=== PATIENT | male | born 1950 | race Caucasian/White ===

== ENCOUNTER → 2017-12-17 11:45 | Outpatient (CLI) | payer MEDICARE, OTHER, SELFPAY ==
[2017-12-17 13:06] LABS: Alanine Aminotransferase 33 IU/L (21-72); Albumin 4.6 g/dL (3.5-5.0); Albumin Globulin Ratio 1.2 (1.0-2.8); Alkaline Phosphatase 90 U/L (38-126); Aspartate Aminotransferase 31 IU/L (17-59); BUN Creatinine Ratio 22.5 (6-22); Bilirubin Total 1.1 mg/dL (0.2-1.3); Blood Urea Nitrogen 27 mg/dL (9-20); Calcium 9.7 mg/dL (8.4-10.2); Carbon Dioxide 25 mmol/L (22-32); Chloride 94 mmol/L (98-107); Cholesterol 156 mg/dL (140-199); Estimated Glomerular Filt Rate > 60.0 mL/min (>60); Globulin 3.7 g/dL (1.7-4.1); Glucose 103 mg/dL (80-110); HDL Cholesterol 56 mg/dL (40-60); HEMOLYSIS 18 (0-50); LDL Cholesterol Calculated 69 mg/dL (<100); Potassium 4.7 mmol/L (3.4-5.1); Sodium 133 mmol/L (137-145); Total Protein 8.3 g/dL (6.3-8.2); Triglycerides 156 mg/dL (35-150)
[2017-12-17 15:27] LABS: Microalbumi Creatinin Ratio Ur 18.4 ug/mg CR (<30); Microalbumin Urine Random 1.4 mg/dL (0-1.6)
== END ==
PROVIDERS: PCP Internal Medicine; Visit Provider Internal Medicine
DX: I25.10 Atherosclerotic heart disease of native coronary artery without angina pectoris (principal); I10 Essential (primary) hypertension; N18.3 Chronic kidney disease, stage 3 (moderate); E11.9 Type 2 diabetes mellitus without complications
CPT/HCPCS: 36415; 80053; 80061; 82043; 82570

== ENCOUNTER → 2017-12-21 12:19 | Outpatient (CLI) | payer MEDICARE, OTHER, SELFPAY ==
[2017-12-21 13:20] LABS: Hemoglobin A1C% w Est Avg Glu 6.1 % (4.0-6.0)
[2017-12-21 13:29] LABS: Blood Urea Nitrogen 22 mg/dL (9-20); Carbon Dioxide 29 mmol/L (22-32); Chloride 90 mmol/L (98-107); Estimated Glomerular Filt Rate > 60.0 mL/min (>60); Glucose 97 mg/dL (80-110); HEMOLYSIS < 15 (0-50); Potassium 5.2 mmol/L (3.4-5.1); Sodium 131 mmol/L (137-145)
== END ==
PROVIDERS: PCP Internal Medicine; Visit Provider Internal Medicine
DX: I10 Essential (primary) hypertension (principal); E11.9 Type 2 diabetes mellitus without complications
CPT/HCPCS: 36415; 80048; 83036

== ENCOUNTER → 2018-01-17 11:26 | Outpatient (CLI) | payer MEDICARE, OTHER, SELFPAY ==
[2018-01-17 15:05] LABS: BUN Creatinine Ratio 15.7 (6-22); Blood Urea Nitrogen 22 mg/dL (9-20); Calcium 9.7 mg/dL (8.4-10.2); Carbon Dioxide 26 mmol/L (22-32); Chloride 99 mmol/L (98-107); Estimated Glomerular Filt Rate 50.4 mL/min (>60); Glucose 97 mg/dL (80-110); HEMOLYSIS < 15 (0-50); Sodium 137 mmol/L (137-145)
[2018-01-17 15:17] LABS: Potassium 5.6 mmol/L (3.4-5.1)
== END ==
PROVIDERS: PCP Internal Medicine; Visit Provider Internal Medicine
DX: I10 Essential (primary) hypertension (principal); E11.9 Type 2 diabetes mellitus without complications
CPT/HCPCS: 80048

== ENCOUNTER → 2018-01-31 11:26 | Outpatient (CLI) | payer MEDICARE, OTHER, SELFPAY ==
[2018-01-31 13:02] LABS: BUN Creatinine Ratio 16.2 (6-22); Blood Urea Nitrogen 21 mg/dL (9-20); Calcium 9.6 mg/dL (8.4-10.2); Carbon Dioxide 28 mmol/L (22-32); Chloride 100 mmol/L (98-107); Estimated Glomerular Filt Rate 54.9 mL/min (>60); Glucose 107 mg/dL (80-110); HEMOLYSIS < 15 (0-50); Potassium 5.3 mmol/L (3.4-5.1); Sodium 137 mmol/L (137-145)
== END ==
PROVIDERS: PCP Internal Medicine; Visit Provider Internal Medicine
DX: N18.3 Chronic kidney disease, stage 3 (moderate) (principal)
CPT/HCPCS: 36415; 80048

== ENCOUNTER → 2018-02-15 09:06 | Outpatient (CLI) | payer MEDICARE, OTHER, SELFPAY ==
--- NOTE | 2018-02-15 09:08 | DI.US.S_ITS ---
PROCEDURE: US RENAL COMPLETE INDICATIONS: urinary retention TECHNIQUE: Real-time scanning was performed of the kidneys and bladder, with image documentation. COMPARISON: None. FINDINGS: Kidneys: Kidneys are normal in size. Right kidney measures 10.8 cm long; left kidney measures 12.1 cm long. Right renal cortical thickness is 1.3 cm; left renal cortical thickness is 1.6 cm. Renal cortical echotexture is normal. No hydronephrosis but there is bilateral nephrolithiasis. There is a 6 mm calculus at the mid lateral right kidney and 2 calculi on the left one located at the superior collecting system area measuring 1.7 cm and the second at the middle third collecting system area medially measuring 1.6 cm No suspicious solid mass lesions. Bladder: Bladder evaluation is very limited due to the patient having voided prior to the examination. 29 cc present, the patient could not voluntarily void at this urine volume. Miscellaneous: No free pelvic fluid. IMPRESSION: Calculi present without hydronephrosis involving each kidney, one on the right and 2 on the left. The largest calculus measures up to 1.7 cm, on the left. There is very limited evaluation of the bladder due to the patient having voided prior to the study. 29 cc was present within the bladder lumen, and the patient could not voluntarily void below this level. Dictated by: Hi Moreno M.D. on 02/15/2018 at 9:54 Approved by: Hi Moreno M.D. on 02/15/2018 at 9:57
== END ==
PROVIDERS: Family Provider Family Medicine; PCP Internal Medicine; Visit Provider Internal Medicine
DX: N18.3 Chronic kidney disease, stage 3 (moderate) (principal); R33.9 Retention of urine, unspecified; N20.0 Calculus of kidney
CPT/HCPCS: 76770

== ENCOUNTER → 2018-03-09 13:46 | Outpatient (CLI) | payer MEDICARE, OTHER, SELFPAY ==
[2018-03-09 13:51] LABS: Bacteria Urine None Seen; RBC Urine None Seen (0-5/HPF); WBC Urine None Seen (0-5/HPF)
[2018-03-09 14:57] LABS: Appearance Urine UA CLEAR; Bilirubin Urine UA NEGATIVE (NEGATIVE); Color Urine UA YELLOW; Glucose Urine UA NEGATIVE (Normal); Ketones Urine UA NEGATIVE (NEGATIVE); Leukocyte Esterase Urine UA NEGATIVE (NEGATIVE); Nitrite Urine UA Negative (Negative); Occult Blood Urine UA NEGATIVE (Negative); Protein Urine UA NEGATIVE (Negative); Specific Gravity Urine UA <=1.005 (1.000-1.035); Urobilinogen Urine UA 0.2 E.U./dL (0.2)
[2018-03-09 15:02] LABS: Culture Indicated Urine Cult Not Indicated; Urine Comments Microscopic Normal
== END ==
PROVIDERS: Family Provider Family Medicine; Visit Provider Internal Medicine
DX: N18.3 Chronic kidney disease, stage 3 (moderate) (principal)
CPT/HCPCS: 81001

== ENCOUNTER → 2018-03-11 09:12 | Outpatient (CLI) | payer MEDICARE, OTHER, SELFPAY ==
[2018-03-11 10:09] LABS: BUN Creatinine Ratio 18.2 (6-22); Blood Urea Nitrogen 20 mg/dL (9-20); Calcium 9.8 mg/dL (8.4-10.2); Carbon Dioxide 28 mmol/L (22-32); Chloride 105 mmol/L (98-107); Cholesterol 146 mg/dL (140-199); Estimated Glomerular Filt Rate > 60.0 mL/min (>60); Glucose 123 mg/dL (80-110); HDL Cholesterol 52 mg/dL (40-60); HEMOLYSIS < 15 (0-50); Hemoglobin A1C% w Est Avg Glu 5.8 % (4.0-6.0); LDL Cholesterol Calculated 74 mg/dL (<100); Potassium 4.8 mmol/L (3.4-5.1); Sodium 143 mmol/L (137-145); Triglycerides 101 mg/dL (35-150)
== END ==
PROVIDERS: PCP Internal Medicine; Visit Provider Internal Medicine
DX: E11.9 Type 2 diabetes mellitus without complications (principal); E78.00 Pure hypercholesterolemia, unspecified; I10 Essential (primary) hypertension; N18.3 Chronic kidney disease, stage 3 (moderate)
CPT/HCPCS: 36415; 80048; 80061; 83036

== ENCOUNTER → 2018-06-10 07:05 | Outpatient (CLI) | payer MEDICARE, OTHER, SELFPAY ==
--- NOTE | 2018-06-10 07:07 | DI.US.S_ITS ---
PROCEDURE: US ABD AORTA ANEURYSM SCREEN INDICATIONS: HISTORY SMOKING TECHNIQUE: Real time scanning was performed of the aorta and iliac arteries, with image documentation. COMPARISON: [facility], US, US RENAL COMPLETE, 02/15/2018, 9:27. [facility], CR, ABDOMEN ACUTE SERIES, 12/09/2016, 8:45. FINDINGS: Aorta: Proximal aortic not well-visualized. Mid-aorta measures 1.5 cm. Distal aortic diameter is 1.4 cm. Iliac arteries: Right common iliac artery measures 1.2 cm. Left common iliac artery measures 1.0 cm. IMPRESSION: Proximal aorta not well visualized otherwise normal abdominal aortic or proximal common iliac artery aneurysm. Dictated by: Casey Leonard [facility] Interpreted: Thierno Bowser MD on 06/10/2018 at 8:07 Approved by: Thierno Bowser M.D. on 06/10/2018 at 11:07
== END ==
PROVIDERS: Family Provider Family Medicine; PCP Student in an Organized Health Care Education/Training Program; Visit Provider Student in an Organized Health Care Education/Training Program
DX: Z13.6 Encounter for screening for cardiovascular disorders (principal); Z87.891 Personal history of nicotine dependence
CPT/HCPCS: 76706

== ENCOUNTER → 2019-04-10 11:56 | Outpatient (CLI) | payer MEDICARE, OTHER, SELFPAY ==
[2019-04-10 14:09] LABS: BUN Creatinine Ratio 13.1 (6-22); Blood Urea Nitrogen 17 mg/dL (9-20); Calcium 9.7 mg/dL (8.4-10.2); Carbon Dioxide 25 mmol/L (22-32); Chloride 98 mmol/L (98-107); Estimated Glomerular Filt Rate 54.7 mL/min (>60); Glucose 112 mg/dL (80-110); HEMOLYSIS < 15 (0-50); Potassium 4.9 mmol/L (3.4-5.1); Sodium 136 mmol/L (137-145)
[2019-04-10 14:13] LABS: Hemoglobin A1C% w Est Avg Glu 5.9 % (4.0-6.0)
[2019-04-10 14:21] LABS: Prostate Specific Antigen Scrn 0.454 ng/mL (0.1-4.0)
[2019-04-10 15:52] LABS: Vitamin D 25 Hydroxy (D3) 32.1 ng/mL (30.0-100.0)
== END ==
PROVIDERS: PCP Student in an Organized Health Care Education/Training Program; Visit Provider Student in an Organized Health Care Education/Training Program
DX: E11.9 Type 2 diabetes mellitus without complications (principal); E87.5 Hyperkalemia; I10 Essential (primary) hypertension; Z12.5 Encounter for screening for malignant neoplasm of prostate; E55.9 Vitamin D deficiency, unspecified
CPT/HCPCS: 36415; 80048; 82306; 83036; G0103

== ENCOUNTER → 2019-08-28 11:26 | Outpatient (CLI) | payer MEDICARE, OTHER, SELFPAY ==
[2019-08-28 12:11] LABS: BUN Creatinine Ratio 16.2 (6-22); Blood Urea Nitrogen 21 mg/dL (9-20); Carbon Dioxide 25 mmol/L (22-32); Chloride 99 mmol/L (98-107); Potassium 4.9 mmol/L (3.4-5.1); Sodium 134 mmol/L (137-145)
[2019-08-28 12:12] LABS: Calcium 9.6 mg/dL (8.4-10.2); Estimated Glomerular Filt Rate 54.7 mL/min (>60); Glucose 129 mg/dL (80-110); HEMOLYSIS 22 (0-50)
[2019-08-28 12:23] LABS: Hemoglobin A1C% w Est Avg Glu 6.7 % (4.0-6.0)
== END ==
PROVIDERS: PCP Student in an Organized Health Care Education/Training Program; Referring Provider Student in an Organized Health Care Education/Training Program; Visit Provider Student in an Organized Health Care Education/Training Program
DX: E11.9 Type 2 diabetes mellitus without complications (principal); I10 Essential (primary) hypertension; N18.2 Chronic kidney disease, stage 2 (mild)
CPT/HCPCS: 36415; 80048; 83036

== ENCOUNTER → 2019-12-05 10:19 | Outpatient (CLI) | payer MEDICARE, OTHER, SELFPAY ==
[2019-12-05 11:52] LABS: Hemoglobin A1C% w Est Avg Glu 6.6 % (4.0-6.0)
[2019-12-05 12:03] LABS: BUN Creatinine Ratio 14.6 (6-22); Blood Urea Nitrogen 15 mg/dL (9-20); Estimated Glomerular Filt Rate > 60.0 mL/min (>60)
== END ==
PROVIDERS: PCP Student in an Organized Health Care Education/Training Program; Referring Provider Student in an Organized Health Care Education/Training Program; Visit Provider Student in an Organized Health Care Education/Training Program
DX: E11.9 Type 2 diabetes mellitus without complications (principal); N18.2 Chronic kidney disease, stage 2 (mild)
CPT/HCPCS: 36415; 82565; 83036; 84520

== ENCOUNTER → 2020-08-05 09:57 | Outpatient (CLI) | payer MEDICARE, OTHER, SELFPAY ==
[2020-08-06 07:44] LABS: Alanine Aminotransferase 33 IU/L (<50); Albumin 4.5 g/dL (3.5-5.0); Albumin Globulin Ratio 1.3 (1.0-2.8); Alkaline Phosphatase 90 U/L (38-126); Aspartate Aminotransferase 34 IU/L (17-59); BUN Creatinine Ratio 22.5 (6-22); Bilirubin Total 0.7 mg/dL (0.2-1.3); Blood Urea Nitrogen 25 mg/dL (9-20); Calcium 9.7 mg/dL (8.4-10.2); Carbon Dioxide 31 mmol/L (22-32); Chloride 103 mmol/L (98-107); Cholesterol 165 mg/dL (140-199); Estimated Glomerular Filt Rate > 60.0 mL/min (>60); Globulin 3.6 g/dL (1.7-4.1); Glucose 160 mg/dL (80-110); HDL Cholesterol 53 mg/dL (40-60); HEMOLYSIS < 15 (0-50); LDL Cholesterol Calculated 78 mg/dL (<100); Potassium 4.8 mmol/L (3.4-5.1); Sodium 137 mmol/L (137-145); Total Protein 8.1 g/dL (6.3-8.2); Triglycerides 168 mg/dL (35-150)
[2020-08-06 07:45] LABS: Hemoglobin A1C% w Est Avg Glu 7.1 % (4.0-6.0)
== END ==
PROVIDERS: PCP Student in an Organized Health Care Education/Training Program; Referring Provider Internal Medicine Cardiovascular Disease; Visit Provider Internal Medicine Cardiovascular Disease
DX: E78.2 Mixed hyperlipidemia (principal); E11.9 Type 2 diabetes mellitus without complications; N18.2 Chronic kidney disease, stage 2 (mild)
CPT/HCPCS: 80053; 80061; 82565; 83036; 84520

== ENCOUNTER → 2021-02-03 10:42 | Outpatient (CLI) | payer MEDICARE, OTHER, SELFPAY ==
[2021-02-03 12:05] LABS: Hemoglobin A1C% w Est Avg Glu 7.5 % (4.0-6.0)
[2021-02-03 12:15] LABS: BUN Creatinine Ratio 18.8 (6-22); Blood Urea Nitrogen 22 mg/dL (9-20); Estimated Glomerular Filt Rate > 60.0 mL/min (>60)
[2021-02-03 12:40] LABS: Prostate Specific Antigen Scrn 0.516 ng/mL (0.1-4.0)
== END ==
PROVIDERS: PCP Student in an Organized Health Care Education/Training Program; Referring Provider Student in an Organized Health Care Education/Training Program; Visit Provider Student in an Organized Health Care Education/Training Program
DX: E11.9 Type 2 diabetes mellitus without complications (principal); Z12.5 Encounter for screening for malignant neoplasm of prostate; N18.2 Chronic kidney disease, stage 2 (mild)
CPT/HCPCS: 36415; 82565; 83036; 84520; G0103

== ENCOUNTER → 2021-02-17 13:22 | Outpatient (CLI) | payer MEDICARE, OTHER, SELFPAY ==
[2021-02-17 16:07] LABS: Creatinine Urine Random 171.9 mg/dL
[2021-02-17 16:13] LABS: Microalbumi Creatinin Ratio Ur 11.6 ug/mg CR (<30)
== END ==
PROVIDERS: PCP Student in an Organized Health Care Education/Training Program; Referring Provider Student in an Organized Health Care Education/Training Program; Visit Provider Student in an Organized Health Care Education/Training Program
DX: E11.9 Type 2 diabetes mellitus without complications (principal); N18.2 Chronic kidney disease, stage 2 (mild)
CPT/HCPCS: 82043; 82570

== ENCOUNTER → 2021-08-12 12:03 | Outpatient (CLI) | payer MEDICARE, OTHER, SELFPAY ==
[2021-08-12 14:37] LABS: BUN Creatinine Ratio 18.2 (6-22); Blood Urea Nitrogen 18 mg/dL (9-20); Cholesterol 92 mg/dL (140-199); Estimated Glomerular Filt Rate > 60.0 mL/min (>60); HDL Cholesterol 63 mg/dL (40-60); LDL Cholesterol Calculated 18 mg/dL (<100); Triglycerides 56 mg/dL (35-150)
== END ==
PROVIDERS: PCP Student in an Organized Health Care Education/Training Program; Referring Provider Internal Medicine Cardiovascular Disease; Visit Provider Internal Medicine Cardiovascular Disease
DX: E11.9 Type 2 diabetes mellitus without complications (principal); E78.2 Mixed hyperlipidemia; N18.2 Chronic kidney disease, stage 2 (mild)
CPT/HCPCS: 36415; 80061; 82565; 83036; 84520

== ENCOUNTER → 2021-09-02 12:50 | Outpatient (CLI) | payer MEDICARE, OTHER, SELFPAY ==
[2021-09-03 16:24] LABS: Bilirubin Urine UA NEGATIVE (NEGATIVE); Color Urine UA YELLOW; Glucose Urine UA NEGATIVE (Negative); Ketones Urine UA NEGATIVE (NEGATIVE); Leukocyte Esterase Urine UA TRACE (NEGATIVE); Nitrite Urine UA NEGATIVE (Negative); Occult Blood Urine UA 3+ (Negative); Protein Urine UA 1+ (Negative); Specific Gravity Urine UA <=1.005 (1.000-1.035); Urobilinogen Urine UA 0.2 E.U./dL (0.2)
[2021-09-03 17:14] LABS: Appearance Urine UA Slightly Cloudy; RBC Urine 5-10/HPF (0-5/HPF); Squamous Epithelial Cell Urine 1-5 /HPF (0-5/HPF); WBC Urine 5-10/HPF (0-5/HPF)
[2021-09-03 17:15] LABS: Amorphous Sediment Urine 1+; Bacteria Urine Occasional (0-1); Culture Indicated Urine Specimen Cultured
== END ==
PROVIDERS: PCP Student in an Organized Health Care Education/Training Program; Referring Provider Student in an Organized Health Care Education/Training Program; Visit Provider Student in an Organized Health Care Education/Training Program
DX: Z20.822 Contact with and (suspected) exposure to COVID-19 (principal)
CPT/HCPCS: 36415; 80048; 81001; 82043; 82570; 83036; 87086

== ENCOUNTER → 2021-09-15 11:45 | Outpatient (CLI) | payer MEDICARE, OTHER, SELFPAY ==
[2021-09-15 15:21] LABS: Creatinine Urine Random 74.5 mg/dL
[2021-09-15 15:28] LABS: Microalbumi Creatinin Ratio Ur 185.2 ug/mg CR (<30); Microalbumin Urine Random 13.8 mg/dL (0-1.6)
[2021-09-16 10:54] LABS: Appearance Urine UA SL CLOUDY; Bilirubin Urine UA NEGATIVE (NEGATIVE); Color Urine UA YELLOW; Glucose Urine UA NEGATIVE (Negative); Ketones Urine UA NEGATIVE (NEGATIVE); Leukocyte Esterase Urine UA NEGATIVE (NEGATIVE); Nitrite Urine UA NEGATIVE (Negative); Occult Blood Urine UA 3+ (Negative); Protein Urine UA 1+ (Negative); Specific Gravity Urine UA 1.015 (1.000-1.035); Urobilinogen Urine UA 0.2 E.U./dL (0.2); pH Urine UA 5.5 (4.5-8.0)
[2021-09-16 11:04] LABS: Bacteria Urine None Seen; Calcium Oxalate Crystals Urine Moderate; RBC Urine 30-100/HPF (0-5/HPF); Squamous Epithelial Cell Urine 0-1 /HPF (0-5/HPF); WBC Urine 1-5/HPF (0-5/HPF)
[2021-09-16 11:05] LABS: Culture Indicated Urine Cult Not Indicated
== END ==
PROVIDERS: PCP Student in an Organized Health Care Education/Training Program; Referring Provider Student in an Organized Health Care Education/Training Program; Visit Provider Student in an Organized Health Care Education/Training Program
DX: N18.2 Chronic kidney disease, stage 2 (mild) (principal); E11.9 Type 2 diabetes mellitus without complications; E78.00 Pure hypercholesterolemia, unspecified; E87.5 Hyperkalemia; I10 Essential (primary) hypertension; R33.9 Retention of urine, unspecified; I25.10 Atherosclerotic heart disease of native coronary artery without angina pectoris; R31.9 Hematuria, unspecified
CPT/HCPCS: 81003; 81015; 82043; 82570

== ENCOUNTER → 2021-09-22 12:08 | Outpatient (CLI) | payer MEDICARE, OTHER, SELFPAY ==
[2021-09-22 13:34] LABS: Blood Urea Nitrogen 16 mg/dL (9-20); Calcium 9.5 mg/dL (8.4-10.2); Carbon Dioxide 24 mmol/L (22-32); Chloride 100 mmol/L (98-107); Estimated Glomerular Filt Rate > 60.0 mL/min (>60); Glucose 210 mg/dL (80-110); HEMOLYSIS < 15 (0-50); Potassium 4.2 mmol/L (3.4-5.1); Sodium 134 mmol/L (137-145)
--- NOTE | 2021-09-22 13:40 | DI.CT.S_ITS ---
PROCEDURE: CT ABDOMEN PELVIS WO/W CON INDICATIONS: Hematuria TECHNIQUE: Optional 5 mm thick noncontrast images acquired from the diaphragm to the symphysis pubis. After the administration of intravenous contrast, 5 mm thick images acquired from the diaphragm to the symphysis pubis after a 10-minute delay. 2 mm thick coronal and sagittal reformats were then performed of the kidneys and ureters. For radiation dose reduction, the following was used: automated exposure control, adjustment of mA and/or kV according to patient size. COMPARISON: None. FINDINGS: Image quality: Excellent. Lung bases: Lung bases are clear. Heart size is normal. Post median sternotomy. Coronary artery calcifications. Urinary system: Both kidneys are normal in size. Left renal pelvis is distended with a large stone measuring 2.8 cm, (). There is stranding surrounding the left renal pelvis. 2nd left kidney stone measuring 1.1 cm. Small bilateral renal cysts. No perinephric fat stranding. There is normal bilateral renal enhancement. Renal calyces appear normal in morphology when filled with contrast. Opacified portions of both ureters demonstrate normal caliber. Bladder wall thickness is normal. No calcified bladder stones. Other solid organs: Liver is normal in size and enhancement. Gallbladder is decompressed. Gallstone measuring 0.6 cm. Biliary system is non dilated. Pancreas is atrophic. Spleen is normal in size and enhancement. No adrenal nodules. Peritoneum and bowel: Bowel loops demonstrate normal wall thickness and caliber. Diverticulosis. Normal appendix. No free fluid or air. Nodes and vessels: No retroperitoneal or mesenteric adenopathy by size criteria. Aorta and inferior vena cava are normal in size. Circumferential calcified atherosclerotic plaque. Abdominal wall: No ventral hernias. Pelvis: Prostatomegaly. No pathologic free pelvic fluid. Fat containing right inguinal hernia. No adenopathy. Left testicle measures 3.1 cm in length. The right testicle measures 5.2 cm in length, (6/48). Bones: No suspicious bony lesions. No vertebral body compression fractures. IMPRESSION: 1. Large stone in the left renal pelvis measuring 2.8 cm. There is stranding surrounding the left renal pelvis which may be due to inflammatory change. There is no significant caliectasis. 2. Additional nonobstructing left kidney stone. 3. Asymmetric enlargement of the right testicle compared to the left. -Recommend further evaluation with scrotal ultrasound. 4. Small gallstone. Diverticulosis. Dictated by: Sharad De La O M.D. on 09/22/2021 at 15:31 Approved by: Sharad De La O M.D. on 09/22/2021 at 15:56
[2021-09-22 13:41] LABS: Hemoglobin A1C% w Est Avg Glu 6.8 % (4.0-6.0)
== END ==
PROVIDERS: PCP Student in an Organized Health Care Education/Training Program; Referring Provider Student in an Organized Health Care Education/Training Program; Visit Provider Student in an Organized Health Care Education/Training Program
DX: N20.0 Calculus of kidney (principal); R31.9 Hematuria, unspecified; R33.9 Retention of urine, unspecified; E11.22 Type 2 diabetes mellitus with diabetic chronic kidney disease; I12.9 Hypertensive chronic kidney disease with stage 1 through stage 4 chronic kidney disease, or unspecified chronic kidney disease; N18.2 Chronic kidney disease, stage 2 (mild); N44.8 Other noninflammatory disorders of the testis; K80.20 Calculus of gallbladder without cholecystitis without obstruction; K57.90 Diverticulosis of intestine, part unspecified, without perforation or abscess without bleeding; E78.00 Pure hypercholesterolemia, unspecified; E87.5 Hyperkalemia; I25.10 Atherosclerotic heart disease of native coronary artery without angina pectoris
CPT/HCPCS: 36415; 74178; 80048; 83036

== ENCOUNTER → 2021-09-24 09:49 | Outpatient (CLI) | payer MEDICARE, OTHER, SELFPAY ==
--- NOTE | 2021-09-24 09:50 | DI.RAD.S_ITS ---
PROCEDURE: XR KUB INDICATIONS: ureteric and renal calculus TECHNIQUE: One view of the abdomen acquired. COMPARISON: [facility], CR, ABDOMEN ACUTE SERIES, 12/09/2016, 8:45. [facility], CT, CT ABDOMEN PELVIS WO/W CON, 09/22/2021, 13:42. FINDINGS: Surgical changes and devices: None. Bowel: Bowel gas pattern is normal. Soft tissues: Large stones are to the area of the left kidney 0.1 cm and 3.1 cm, respectively. Kidney stones are unchanged in position. No definitive right renal calculi of the right kidney is obscured by overlying stool. There is a moderate amount of stool in proximal colon. Visualized solid organ contours appear normal in size. Bones: No suspicious bony lesions. IMPRESSION: 2 large left renal calculi are identified, unchanged in position compared to the recent CT. Dictated by: Juan M Carranza M.D. on 09/24/2021 at 11:57 Approved by: Juan M Carranza M.D. on 09/24/2021 at 12:00
== END ==
PROVIDERS: PCP Student in an Organized Health Care Education/Training Program; Referring Provider Specialist; Visit Provider Specialist
DX: N20.2 Calculus of kidney with calculus of ureter (principal); R31.0 Gross hematuria; N50.0 Atrophy of testis
CPT/HCPCS: 74018; 81002; 99215

== ENCOUNTER → 2021-09-30 09:34 | Outpatient (CLI) | payer MEDICARE, OTHER, SELFPAY ==
[2021-09-30 10:48] LABS: COVID19 -Nasal RAPID Negative (Negative)
== END ==
PROVIDERS: PCP Student in an Organized Health Care Education/Training Program; Visit Provider Specialist
DX: Z20.822 Contact with and (suspected) exposure to COVID-19 (principal)
CPT/HCPCS: 87635; C9803

== ENCOUNTER 2021-10-03 08:19 | Day surgery (SDC) | payer MEDICARE, OTHER, SELFPAY ==
--- NOTE | 2021-10-03 | DI.RAD.S_ITS ---
PROCEDURE: XR KUB INDICATIONS: Left renal calculi TECHNIQUE: One view of the abdomen acquired. COMPARISON: [facility], CT, CT ABDOMEN PELVIS WO/W CON, 09/22/2021, 13:42. [facility], CR, XR KUB, 09/24/2021, 10:02. FINDINGS: Surgical changes and devices: None. Bowel: Nonspecific bowel gas pattern. Moderate stool burden in the ascending colon. Soft tissues: Redemonstrated left renal calculi, measuring up to 2.9 cm. Visualized solid organ contours appear normal in size. Bones: No suspicious bony lesions. IMPRESSION: Redemonstrated left nephrolithiasis. Dictated by: Michael Disla M.D. on 10/03/2021 at 9:57 Approved by: Michael Disla M.D. on 10/03/2021 at 9:58
--- NOTE | 2021-10-03 | DI.RAD.S_ITS ---
PROCEDURE: XR ABDOMEN 1V INDICATIONS: LT STENT PLACEMENT TECHNIQUE: 2 spot fluoroscopic intra procedural images were acquired. COMPARISON: [facility], CR, XR KUB, 09/24/2021, 10:02. [facility], CR, XR KUB, 10/03/2021, 8:34. FINDINGS: Spot fluoroscopic intraprocedural images of the left paraspinal region demonstrate a left ureteral stent with proximal tip coiling in the expected location of the renal pelvis. Left renal calculi are seen as demonstrated on radiographs from earlier the same day. IMPRESSION: Fluoroscopic guidance was used for left ureteral stent placement with upper tip looping over the expected location of the left renal pelvis. Dictated by: Mynor Archuleta M.D. on 10/03/2021 at 14:52 Approved by: Mynor Archuleta M.D. on 10/03/2021 at 14:54
[2021-10-03 08:40] VITALS: BP 123/64; PULSE 75; RESP 18; TEMP 36.6; O2SAT 100
[2021-10-03 08:55] VITALS: BMI 26.9
[2021-10-03] MEDS: LACTATED RINGERS 1,000 ML 42 ML IV (09:05)
--- NOTE | 2021-10-03 10:01 | PM.PREOP ---
Pre-operative Note COVID-19 Criteria for continued procedure: Expected advancement of disease process, Possibility delay results in more complex future surgery or treatment, Continuing or worsening of significant or severe pain, Deterioration of the patient's condition or overall health, Delay expected to result in less-positive ultimate med/surg outcome and Non-surgical alternatives not available or appropriate per current SOC Interval Note History & Physical reviewed/Exam performed by Physician: Yes Changes to H&P: No
--- NOTE | 2021-10-03 10:06 | SUR.OPER ---
Lithotomy on padded OR bed, head on pillow, arms secured on padded arm boards at <90 degrees abduction. Legs secured in padded yellow fins stirrups.
[2021-10-03] MEDS: CEFAZOLIN 2 GM/20 ML SYRINGE IV (10:25)
[2021-10-03 10:50] VITALS: BP 122/54; PULSE 61; RESP 16; TEMP 36.4; O2SAT 98
[2021-10-03 10:55] VITALS: BP 116/50; PULSE 59; RESP 16; O2SAT 96
[2021-10-03 11:00] VITALS: BP 122/52; PULSE 63; RESP 16; O2SAT 96
[2021-10-03 11:05] VITALS: BP 123/51; PULSE 60; RESP 18; O2SAT 96
[2021-10-03 11:14] VITALS: BP 128/49; PULSE 67; RESP 15; TEMP 36.4; O2SAT 98
--- NOTE | 2021-10-03 11:40 | P.OP_ITS ---
Operative Date/Time/Diagnoses Date of procedure: 10/03/21 Time of procedure: 11:20 Pre-op diagnosis: 1. Obstructing 2.1 x 2.9 cm left renal pelvic calculus. 2. Intermittent gross hematuria. Post-op diagnosis: same Procedure & Clinicians Procedure: 1. Cystoscopy/placement left ureteral stent (8 [place] by 22-32 cm multi-length). Same procedure as scheduled: Yes Indications: 1. 2.1 x 2.9 cm left renal pelvic calculus. 2. Intermittent gross hematuria. Click Yes if Unassisted: Yes Anesthesia Type: General Operative Notes Findings: 1. Urethra-normal caliber without annular stricture or lesion. 2. External sphincter-coapted with normal overlying urothelium. 3. Tpjyxmkk-8-6.5 cm length with moderately obstructing trilobar hyperplasia. 4. Bladder-1+ trabeculation. Normal ureteral orifices bilaterally. No stone, tumor, foreign body seen. Closure Type: primary Specimen(s): none sent Applied: other (Eight [place] by 22-32 cm multi-length stent) Estimated Blood Loss (mL): 0 Blood products transfused: none Procedure in detail: The patient was positioned in supine was administered general anesthesia. He was then repositioned semi lithotomy lower abdomen, genitalia and groin were then prepped and draped sterile fashion. A 22 [place] panendoscope some past lower urinary tract with the findings as described above. A 0.35 hybrid guidewire was then advanced through the endoscope and then passed in left collecting system under direct and fluoroscopic guidance. Next, an 8 [place] by 22-32 cm multi-length stent was selected. This was then advanced over the hybrid guidewire under direct and fluoroscopic guidance. NO RETRIEVAL LINE WAS LEFT ATTACHED. Bladder was then drained completely and the panendoscope was removed. The patient was then repositioned in supine, awakened, and transferred to a [facility] for transport to PACU. Complications: none Post-operative Condition: stable Disposition: PACU Plan for aftercare: Discharge home.
== END 2021-10-03 11:39 | disposition home or self-care (01) ==
PROVIDERS: PCP Student in an Organized Health Care Education/Training Program; Referring Provider Specialist; Visit Provider Specialist
PROC: (CPT 52332; principal; 2021-10-03 09:15)
DX: N20.1 Calculus of ureter (principal); R31.0 Gross hematuria; N40.0 Benign prostatic hyperplasia without lower urinary tract symptoms
CPT/HCPCS: 52332; 74018; 76000; 82962; J0690; J1885; J2250; J2405; J2704; J3010

== ENCOUNTER → 2021-12-23 15:26 | Outpatient (CLI) | payer MEDICARE, OTHER, SELFPAY ==
--- NOTE | 2021-12-23 15:29 | DI.RAD.S_ITS ---
PROCEDURE: XR KUB INDICATIONS: left nephrolithiasis TECHNIQUE: One view of the abdomen acquired. COMPARISON: [facility], CT, CT ABDOMEN PELVIS WO/W CON, 09/22/2021, 13:42. [facility], CR, XR ABDOMEN 1V, 10/03/2021, 10:53. [facility], CR, XR KUB, 10/03/2021, 8:34. FINDINGS: Surgical changes and devices: Left ureteral stent again noted. Bowel: Bowel gas pattern is normal. Soft tissues: No suspicious abdominal calcifications. Visualized solid organ contours appear normal in size. 3.2 cm calcification again seen projected over the left renal pelvis and 1.3 cm calcification projected over the superior pole of the left kidney. Bones: No suspicious bony lesions. IMPRESSION: 1. Interval placement of left ureteral stent. 2. 3.2 cm calcification projected over the left renal pelvis and 1.3 cm calcification again seen projected over the superior pole of the left kidney. Dictated by: Casey Leonard [facility] Interpreted: Juan M Carranza MD on 12/23/2021 at 15:42 Approved by: Juan M Carranza M.D. on 12/23/2021 at 17:25
== END ==
PROVIDERS: PCP Student in an Organized Health Care Education/Training Program; Referring Provider Specialist; Visit Provider Specialist
DX: N20.0 Calculus of kidney (principal)
CPT/HCPCS: 74018

== ENCOUNTER → 2021-12-24 13:49 | Outpatient (CLI) | payer MEDICARE, OTHER, SELFPAY ==
[2021-12-24 14:38] LABS: COVID19 -Nasal RAPID Negative (Negative)
== END ==
PROVIDERS: PCP Student in an Organized Health Care Education/Training Program; Visit Provider Specialist
DX: N20.0 Calculus of kidney (principal); Z20.822 Contact with and (suspected) exposure to COVID-19; Z96.0 Presence of urogenital implants
CPT/HCPCS: 87635; 99215

== ENCOUNTER 2021-12-26 09:20 | Day surgery (SDC) | payer MEDICARE, OTHER, SELFPAY ==
--- NOTE | 2021-12-26 | DI.RAD.S_ITS ---
PROCEDURE: XR ABDOMEN 1V INDICATIONS: LT STENT TECHNIQUE: One view of the abdomen acquired. COMPARISON: None. FINDINGS: Intraoperative images demonstrate proximal segment of left ureteral stent. IMPRESSION: Left ureteral stent. Dictated by: Celeste Rider MD, PhD on 12/26/2021 at 15:01 Approved by: Celeste Rider MD, PhD on 12/26/2021 at 15:02
--- NOTE | 2021-12-26 10:20 | PM.PREOP ---
Pre-operative Note COVID-19 Criteria for continued procedure: Expected advancement of disease process, Possibility delay results in more complex future surgery or treatment, Deterioration of the patient's condition or overall health, Delay expected to result in less-positive ultimate med/surg outcome and Non-surgical alternatives not available or appropriate per current SOC Interval Note History & Physical reviewed/Exam performed by Physician: Yes Changes to H&P: No
[2021-12-26 10:29] VITALS: BP 163/74; PULSE 69; RESP 16; TEMP 36.3; O2SAT 99
[2021-12-26] MEDS: LACTATED RINGERS 1,000 ML 100 ML IV (10:43)
[2021-12-26] MEDS: CEFAZOLIN 2 GM/20 ML SYRINGE IV (11:05)
--- NOTE | 2021-12-26 11:25 | SUR.OPER ---
Lithotomy on padded OR bed, head on pillow, arms secured on padded arm boards at <90 degrees abduction. Legs secured in padded yellow fins stirrups.
--- NOTE | 2021-12-26 11:39 | P.OP_ITS ---
Operative Date/Time/Diagnoses Date of procedure: 12/26/21 Time of procedure: 11:39 Pre-op diagnosis: 1. Large left renal stone burden x2. 2. Gross hematuria. 3. CKD 4. Retained left ureteral stent. Post-op diagnosis: same Procedure & Clinicians Procedure: 1. Cystoscopy/left ureteral stent exchange (8 [place] by 22-32 cm multi-length. Same procedure as scheduled: Yes Indications: 1. Large left renal stone burden x2. 2. Gross hematuria. 3. CKD. 4. Retained left ureteral stent. Surgeon: Ros Dunn Click Yes if Unassisted: Yes Anesthesia Type: General Operative Notes Findings: 1. Urethra-normal caliber without annular stricture or lesion. 2. External sphincter coapted with normal overlying urothelium. 3. Prostate-3.5-4 cm length with moderate trilobar hyperplasia. 4. Bladder-1+ trabeculation. Normal right ureteral orifice. Left ureteral orifice has intact left stent with moderate encrustations of the stent. There was moderate erythema and bullous edema the vicinity of left ureteral orifice and distal intramural ureter. Closure Type: not applicable Specimen(s): other (Stone material dislodged from indwelling left ureteral stent.) Applied: other (Eight [place] by 22-32 cm multilink stent.) Estimated Blood Loss (mL): 0 Procedure in detail: Patient was positioned supine was administered general anesthesia. He was then repositioned in semi lithotomy and the lower abdomen, genitalia, and groin were then prepped and draped in sterile fashion. Twenty-two [place] panendoscope was then passed the lower urinary tract with the findings as described above. The foreign body grasper was then used to engage the distal end of the stent and the stent was then withdrawn with its distal tip just beyond the penile meatus. A 0.35 hybrid guidewire was then advanced into the lumen of retained stent and advanced proximally. However due to encrustations, the wire was not able to be advanced successfully through and through to establish continuity of the proximal tip in the intrarenal pelvis. Therefore the hybrid guidewire was backloaded off the ureteral stent. The panendoscope was then reintroduced alongside the retained ureteral stent now the hybrid guidewire was advanced successfully into the left ureteral orifice and advanced proximally under direct fluoroscopic vision. The indwelling, retained, left ureteral stent was then removed and discarded. Next, an 8 [place] by 22-32 cm multi-length stent was a dvanced over the hybrid guidewire advanced proximally under direct and fluoroscopic guidance. NO RETRIEVAL LINE WAS LEFT ATTACHED. The bladder was then drained completely and all instrumentation was removed. The patient was then awakened, transferred to [facility], and then transferred to PACU in stable condition. Complications: none Post-operative Condition: stable Disposition: PACU Plan for aftercare: Discharge home.
[2021-12-26 11:41] VITALS: BP 142/63; PULSE 61; RESP 15; TEMP 36.3; O2SAT 97
[2021-12-26 11:46] VITALS: BP 135/61; PULSE 61; RESP 15; O2SAT 97
[2021-12-26 11:51] VITALS: BP 142/61; PULSE 62; RESP 15; O2SAT 97
[2021-12-26 12:08] VITALS: BP 143/57; PULSE 62; RESP 15; O2SAT 97
--- NOTE | 2021-12-26 12:13 | SUR.PHASEII ---
discharge instructions reviewed pt and he verbalized understanding.
--- NOTE | 2021-12-26 12:24 | SUR.PHASEII ---
pt had bleeding from the meatus post op. drainage soaked through gauze pads. [facility] notified and he stated that this was expected due to the procedure. Pt instructed to watch bleeding and if it doesnt subside or increases to get to the ER for help. Pt verbalized understanding.
[2022-01-02 08:52] LABS: Ca oxalate dihydrate 20 % (.); Ca oxalate monohydr 80 % (.); Size 6x4 mm (.)
== END 2021-12-26 12:26 | disposition home or self-care (01) ==
PROVIDERS: PCP Student in an Organized Health Care Education/Training Program; Referring Provider Specialist; Visit Provider Specialist
PROC: (CPT 52332; principal; 2021-12-26 10:45)
DX: N20.0 Calculus of kidney (principal); Z96.0 Presence of urogenital implants; N18.9 Chronic kidney disease, unspecified; I25.10 Atherosclerotic heart disease of native coronary artery without angina pectoris; Z95.1 Presence of aortocoronary bypass graft; I10 Essential (primary) hypertension; G47.33 Obstructive sleep apnea (adult) (pediatric); E11.9 Type 2 diabetes mellitus without complications; Z79.84 Long term (current) use of oral hypoglycemic drugs
CPT/HCPCS: 52332; 74018; 76000; 82365; 82962; J0690; J2405; J2704; J3010

== ENCOUNTER → 2022-01-14 15:02 | Outpatient (CLI) | payer MEDICARE, OTHER, SELFPAY ==
--- NOTE | 2022-01-14 15:04 | DI.US.S_ITS ---
PROCEDURE: US SCROTUM INDICATIONS: enlarged right testicle TECHNIQUE: Real-time scanning was performed of the scrotum and testicles, with image documentation. Color and pulse Doppler interrogation was performed of both testicles. COMPARISON: None. FINDINGS: Right: Testicle is normal in size at 5.0 x 2.6 x 3.5 cm. There is a 2 mm echogenic focus within the superior lateral aspect of the testicle. Epididymis is normal in overall size and morphology. Small hydrocele. No varicocele. Overlying scrotal skin is normal in thickness. Left: Testicle is normal in size at 2.9 x 1.8 x 2.2 cm. Slightly heterogeneous parenchyma. Epididymis is normal in overall size and morphology. Small hydrocele. No varicocele. Overlying scrotal skin is normal in thickness. Doppler: Color and pulse Doppler demonstrate normal and symmetric arterial flow in both testicles. IMPRESSION: 1. Heterogeneous left testicular parenchyma without focal mass. 2. Echogenic focus within the right testis, possibly related to prior infection or injury. 3. No acute process. Dictated by: Anamaria Gunderson M.D. on 01/14/2022 at 16:29 Transcribed by: CARMELO on 01/14/2022 at 16:34 Approved by: Anamaria Gunderson M.D. on 01/14/2022 at 17:03
== END ==
PROVIDERS: PCP Family Medicine; Referring Provider Specialist; Visit Provider Specialist
DX: N44.8 Other noninflammatory disorders of the testis (principal)
CPT/HCPCS: 76870

== ENCOUNTER → 2022-01-31 12:08 | Outpatient (CLI) | payer MEDICARE, OTHER, SELFPAY ==
[2022-01-31 13:06] LABS: Add Manual Diff / Slide Review NO; Basophils Absolute Auto 100 /uL (0-100); Basophils Percent Auto 1.1 % (0-2); Eosinophils Absolute Auto 400 /uL (0-450); Eosinophils Percent Auto 5.1 % (2-4); Hematocrit 35.4 % (41-53); Hemoglobin 12.5 g/dL (13.5-17.5); Lymphocytes Absolute Auto 2700 /uL (1100-4500); Mean Corpuscular HGB Conc 35.5 % (30-36); Mean Corpuscular Hemoglobin 32.1 PG (26-34); Mean Corpuscular Volume 90.6 fL (80-100); Monocytes Absolute Auto 700 /uL (0-900); Monocytes Percent Auto 8.7 % (3-14); Neutrophils Absolute Auto 4400 /uL (1500-7000); Neutrophils Percent Auto 53.1 % (50-75); Platelet Count 198 X10^3/uL (150-400); Red Blood Cell Count 3.91 X10^6/uL (4.5-5.9); Red Cell Distribution Width 13.2 % (11.6-14.8); White Blood Cell Count 8.3 X10^3/uL (4.5-11.0)
[2022-01-31 13:20] LABS: BUN Creatinine Ratio 18.8 (6-22); Blood Urea Nitrogen 24 mg/dL (9-20); Calcium 9.5 mg/dL (8.4-10.2); Carbon Dioxide 25 mmol/L (22-32); Chloride 103 mmol/L (98-107); Estimated Glomerular Filt Rate 59 mL/min (>60); Glucose 111 mg/dL (80-110); HEMOLYSIS < 15 (0-50); Potassium 4.9 mmol/L (3.4-5.1); Sodium 135 mmol/L (137-145)
== END ==
PROVIDERS: Nurse Practitioner Family; PCP Family Medicine; Referring Provider Family Medicine; Visit Provider Family Medicine
DX: I10 Essential (primary) hypertension (principal); N28.9 Disorder of kidney and ureter, unspecified
CPT/HCPCS: 36415; 80048; 85025

== ENCOUNTER → 2022-02-11 11:41 | Outpatient (CLI) | payer MEDICARE, OTHER, SELFPAY ==
--- NOTE | 2022-02-11 11:51 | DI.RAD.S_ITS ---
PROCEDURE: XR KUB INDICATIONS: calculus of kidney TECHNIQUE: One view of the abdomen acquired. COMPARISON: [facility], CR, XR KUB, 12/23/2021, 15:17. FINDINGS: Surgical changes and devices: Left-sided ureteral stent is again seen.. Bowel: Bowel gas pattern is nonobstructive. Moderate fecal stasis throughout the colon is seen. No gross pneumoperitoneum. Soft tissues: 2 left-sided renal calcifications are again seen measures 1 cm M and 2.5 x 2.9 cm in size unchanged from prior study.. Visualized solid organ contours appear normal in size. Bones: No suspicious bony lesions. IMPRESSION: Stable appearing left-sided renal calculi. Left-sided ureteral stent in place. [id number] constipation. Dictated by: Thierno Bowser M.D. on 02/11/2022 at 15:15 Approved by: Thierno Bowser M.D. on 02/11/2022 at 15:18
[2022-02-11 13:17] LABS: Appearance Urine UA CLEAR; Bilirubin Urine UA NEGATIVE (NEGATIVE); Color Urine UA YELLOW; Glucose Urine UA NEGATIVE (Negative); Ketones Urine UA NEGATIVE (NEGATIVE); Leukocyte Esterase Urine UA 1+ (NEGATIVE); Nitrite Urine UA NEGATIVE (Negative); Occult Blood Urine UA 3+ (Negative); Protein Urine UA 2+ (Negative); Urobilinogen Urine UA 0.2 E.U./dL (0.2); pH Urine UA 5.5 (4.5-8.0)
[2022-02-11 13:29] LABS: Calcium 8.9 mg/dL (8.4-10.2); Uric Acid 3.1 mg/dL (3.5-8.5)
[2022-02-11 13:35] LABS: Amorphous Sediment Urine 2+; Bacteria Urine Occasional (0-1); RBC Urine 5-10/HPF (0-5/HPF); Renal Epithelial Cells Urine 1-5/HPF (0-1/HPF); WBC Urine 5-10/HPF (0-5/HPF)
[2022-02-12 06:00] LABS: Parathyroid Hormone Int 43 pg/mL (15-65)
== END ==
PROVIDERS: PCP Family Medicine; Referring Provider Specialist; Visit Provider Specialist
DX: N20.0 Calculus of kidney (principal); K59.00 Constipation, unspecified; Z96.0 Presence of urogenital implants
CPT/HCPCS: 36415; 74018; 81001; 82310; 83970; 84550; 87086

== ENCOUNTER 2022-03-13 20:33 | Emergency (ER) | payer MEDICARE, OTHER, SELFPAY ==
[2022-03-13] VITALS (9 sets, daily range): BP systolic 201–245; BP diastolic 89–124; PULSE 62–72; RESP 17–21; TEMP 36.6–36.8; O2SAT 99; BMI 25.8
--- NOTE | 2022-03-13 21:18 | ED_ITS ---
HPI - General Adult General Chief complaint: Hypertension Stated complaint: High BP 213/105 Time Seen by Provider: 03/13/22 21:18 Source: patient Mode of arrival: Ambulatory History of Present Illness HPI narrative: 71-year-old gentleman with a history of coronary artery disease, hypertension, diabetes, hyperlipidemia who presents with asymptomatic hypertension. 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 The amlodipine and lisinopril were discontinued metoprolol was changed to 50 mg daily and valsartan 160 mg was added at night. He was checking blood pressures this evening prior to taking his valsartan and found numbers in the 220/110 range. No particular stressors, no fevers, cough, chills, chest pain, palpitations. He is having no headaches and no acute neurologic findings. Related Data Home Medications Medication Instructions Recorded Confirmed aspirin 81 mg tablet,delayed 81 mg PO DAILY 04/11/19 03/13/22 release lisinopril 20 mg tablet 20 mg PO QAM 08/06/20 12/25/21 atorvastatin 40 mg tablet 40 mg PO QPM 03/13/22 03/13/22 nitroglycerin 0.4 mg sublingual 0.4 mg sublingual PRN PRN Chest 03/13/22 03/13/22 tablet (Nitrostat) Pain valsartan 160 mg capsule 160 mg PO QPM 03/13/22 03/13/22 Previous Rx's Medication Instructions Recorded metoprolol succinate 50 mg 50 mg PO QDAY #90 tabs 04/01/21 tablet,extended release 24 hr metformin 500 mg tablet 500 mg PO BID #180 tabs 08/13/21 Allergies Allergy/AdvReac Type Severity Reaction Status Date / Time No Known Drug Allergies Allergy Verified 03/13/22 20:56 Review of Systems Review of Systems Narrative: Remainder of complete review of systems is otherwise unremarkable except for that included in the HPI. Patient History Medical History CAD (coronary artery disease) (2008) Chicken pox (~1955) Colon polyps (2011) Diabetes mellitus (2016) Foot pain (2013) Gout (2011) Hearing loss (1999) History of angina (2008) Hyperlipidemia (2009) Hypertension (10/1993) Left nephrolithiasis Measles (~1955) Mumps (1964) Retained ureteral stent Sleep apnea (2010) Subarachnoid hemorrhage (1992) Testicular atrophy Surgical History Anesthesia History of tonsillectomy Hx of cystoscopy (10/03/21) Status post coronary artery bypass graft (10/2009) Family History Father Stroke Diabetes mellitus Grandmother Cancer Sister Heart disease Grandfather No problems noted. Social History marital status: household members: spouse Smoking Status: Former smoker alcohol intake: current Smoking Status: Former smoker alcohol intake frequency: other Substance Use Type: does not use Exam Initial Vital Signs Initial Vital Signs: Vital Signs Temperature 97.9 F 03/13/22 20:56 Pulse Rate 70 03/13/22 20:56 Respiratory Rate 20 03/13/22 20:56 Blood Pressure 221/124 H 03/13/22 20:56 Pulse Oximetry 99 03/13/22 20:56 Oxygen Delivery Method 03/13/22 20:56 General: Healthy appearing, in no acute distress. Able to give a complete and coherent history. Well-nourished well-developed HEENT: Moist mucous membranes, normal sclera with reactive pupils, Neck: No JVD, supple Respiratory: Lungs are clear to auscultation, no wheezing no rales no rhonchi. Full and symmetrical air movement Cardiac: Regular rate and rhythm no murmurs no bruits Abdomen: Soft, nontender, good bowel tones, no flank pain Skin: Warm and dry, no rashes Neurologic: Grossly neurologically intact with no obvious asymmetries or abnormalities Extremities: No trauma, well perfused Psych: Cooperative, appropriate insight and affect Course Orders Ordered: ED Orders 03/13/22 21:19 EKG-12 Lead Stat Discontinued Medications Valsartan (Valsartan 80 Mg Tablet) 320 mg PO NOW ONE Stop: 03/13/22 21:58 Last Admin: 03/13/22 22:07 Dose: 320 mg Documented By: YAYA Vital Signs Vital signs: Vital Signs - 8 hr 03/13/22 20:56 03/13/22 21:13 03/13/22 21:17 Temperature 97.9 F 98.2 F Pulse Rate 70 72 72 Respiratory Rate 20 18 20 Blood Pressure 221/124 H 245/105 H Pulse Oximetry 99 99 99 Oxygen Delivery Method Room Air 03/13/22 21:17 03/13/22 21:30 03/13/22 21:30 Temperature Pulse Rate 69 Respiratory Rate 20 Blood Pressure 245/105 H 226/91 H Pulse Oximetry 99 Oxygen Delivery Method 03/13/22 22:00 03/13/22 22:01 03/13/22 22:01 Temperature Pulse Rate 64 66 Respiratory Rate 17 20 Blood Pressure 201/90 H Pulse Oximetry 99 99 Oxygen Delivery Method 03/13/22 22:30 03/13/22 22:30 03/13/22 23:00 Temperature Pulse Rate 67 62 Respiratory Rate 18 18 Blood Pressure 232/101 H Pulse Oximetry 99 99 Oxygen Delivery Method 03/13/22 23:01 03/13/22 23:01 03/14/22 00:23 Temperature Pulse Rate 62 54 L Respiratory Rate 21 14 Blood Pressure 210/89 H 199/91 H Pulse Oximetry 99 Oxygen Delivery Method Medical Decision Making ECG Data Interpretation: Poor baseline, atrial fibrillation at a rate of 70 Normal intervals, normal axis No acute ischemic changes MDM Narrative Medical decision making narrative: 71-year-old gentleman with asymptomatic hypertension after multiple outpatient hypertensive medication changes over the last week. 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 Spoke to his daughter who is a nurse who recommended that he come to the emergency department based on the elevated blood pressures. In the emergency department a give him a double dose of his evening losartan blood pressures are continuing to trend down and he remains asymptomatic. EKG was unremarkable and no additional workup was pursued. Findings were reviewed with patient his and his daughter and they agree with current plan of care. Will ask that they increase the valsartan to 320 mg from 160 mg. 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 Dr. Lopez was messaged with events of this ER visit. Discharge Plan Departure Patient Disposition: Home Clinical Impression: Benign essential hypertension Instructions: DI for High Blood Pressure Activity Restrictions/Additional Instructions: Thank you for coming in today I am glad that you are paying attention to your blood pressure. Fortunately you are not having any symptoms of your elevated blood pressure at this time. In this situation, it is best to allow the oral medications to gradually adjust your blood pressure down. I gave you an extra dose of the new valsartan in the emergency department and I am going to suggest that you continue with the metoprolol 50 mg extended release every morning and in the evening take 2 of your 160 mg valsartan tablets. Please check your blood pressures mid day and keep track of the numbers. Please let your fertilizer processing supervisor know what the numbers are. I have sent him a message so that he is aware of your ER visit and my suggestions for changing medications. Please return if you have any signs or symptoms stroke or heart attack associated with your elevated blood pressure. [facility]! Prescriptions: No Action aspirin 81 mg tablet,delayed release (DR/EC) 81 mg PO DAILY metoprolol succinate 50 mg tablet extended release 24 hr 50 mg PO QDAY Qty: 90 3RF metformin 500 mg tablet 500 mg PO BID Qty: 180 1RF lisinopril 20 mg tablet 20 mg PO QAM Rx Instructions: 20mg in the morning and 10mg at night valsartan 160 mg Capsule 160 mg PO QPM atorvastatin 40 mg Tablet 40 mg PO QPM nitroglycerin [Nitrostat] 0.4 mg tablet, sublingual 0.4 mg Sublingual PRN PRN (Reason: Chest Pain) Label Comments: never used it yet Referrals: Deon Huerta MD [Primary Care Provider] -
[2022-03-13] MEDS: VALSARTAN 80 MG TABLET 320 MG PO (22:07)
[2022-03-14 00:23] VITALS: BP 199/91; PULSE 54; RESP 14
== END 2022-03-14 01:34 | disposition home or self-care (01) ==
PROVIDERS: Emergency Provider Emergency Medicine; PCP Family Medicine
DX: I10 Essential (primary) hypertension (principal)
CPT/HCPCS: 93005; 99283

== ENCOUNTER 2022-04-05 04:24 | Emergency (ER) | payer MEDICARE, OTHER, SELFPAY ==
[2022-04-05 04:35] VITALS: BP 136/62; PULSE 80; RESP 18; TEMP 36.6; O2SAT 99; BMI 26.3
--- NOTE | 2022-04-05 04:35 | ED_ITS ---
HPI - General Adult General Chief complaint: Urogenital-Male Stated complaint: Unable to urinate Time Seen by Provider: 04/05/22 04:29 History of Present Illness HPI narrative: 71M nonsmoker with history of diabetes, hypertension hyperlipidemia presents with his in the chief complaint of inability to urinate for the past few hours. He states that he was still able to urinate as the evening wore on but his stream became increasingly weak and now he is here with suprapubic pain and inability to urinate. He denies any new medications or dietary change. He is not dizzy nor weak or lightheaded. He denies any fever or chills. He does have some generalized abdominal pain and frequently has constipation. He still passing gas Related Data Home Medications Medication Instructions Recorded Confirmed aspirin 81 mg tablet,delayed 81 mg PO DAILY 04/11/19 03/13/22 release lisinopril 20 mg tablet 20 mg PO QAM 08/06/20 12/25/21 atorvastatin 40 mg tablet 40 mg PO QPM 03/13/22 03/13/22 nitroglycerin 0.4 mg sublingual 0.4 mg sublingual PRN PRN Chest 03/13/22 03/13/22 tablet (Nitrostat) Pain valsartan 160 mg capsule 160 mg PO QPM 03/13/22 03/13/22 Previous Rx's Medication Instructions Recorded metoprolol succinate 50 mg 50 mg PO QDAY #90 tabs 04/01/21 tablet,extended release 24 hr metformin 500 mg tablet 500 mg PO BID #180 tabs 08/13/21 tamsulosin 0.4 mg capsule (Flomax) 0.4 mg PO DAILY #30 caps 04/05/22 ciprofloxacin HCl 250 mg tablet 250 mg PO BID #6 tabs 04/09/22 Allergies Allergy/AdvReac Type Severity Reaction Status Date / Time No Known Drug Allergies Allergy Verified 04/09/22 17:26 Review of Systems Review of Systems Narrative: GENERAL: Denies chills, fatigue, malaise, fever, sweats. HEENT: Denies sinus pain, ear pain, sore throat, difficulty swallowing, dizziness. RESPIRATORY: Denies dyspnea, cough, wheezing, hemoptysis, sputum. CARDIOVASCULAR: Denies chest pain, palpitations, orthopnea, edema, GASTROINTESTINAL: See HPI : see HPI MUSCULOSKELETAL: denies weakness, joint pain, or bony pain SKIN: Denies rash, skin lesions, or other NEUROLOGIC: Denies weakness, headache, numbness, change in speech, confusion, seizures, incoordination. PSYCHIATRIC: No concerning psychosocial issues. 12 point review of systems is negative except for those stated above Patient History Medical History CAD (coronary artery disease) (2008) Chicken pox (~195) Colon polyps (2011) Diabetes mellitus (2016) Foot pain (2013) Gout (2011) Hearing loss (1999) History of angina (2008) Hyperlipidemia (2009) Hypertension (10/1993) Left nephrolithiasis Measles (~1954) Mumps (1964) Retained ureteral stent Sleep apnea (2010) Subarachnoid hemorrhage (1992) Testicular atrophy Surgical History Anesthesia History of tonsillectomy Hx of cystoscopy (10/03/21) Status post coronary artery bypass graft (10/2009) Family History Father Stroke Diabetes mellitus Grandmother Cancer Sister Heart disease Grandfather No problems noted. Social History marital status: household members: spouse Smoking Status: Former smoker alcohol intake: current Smoking Status: Former smoker alcohol intake frequency: other Substance Use Type: does not use Exam Narrative Exam Narrative: GENERAL: [71] year old patient appears stated age. Well-developed patient, in mild distress. HEAD: Atraumatic. Normocephalic. EYES: Pupils equal round and reactive. Extraocular motions intact. No scleral icterus. No injection or drainage. ENT: Nose without bleeding, purulent drainage. Throat without erythema, tonsillar hypertrophy or exudate. Airway patent. NECK: Trachea midline. Non tender CARDIOVASCULAR: Regular rate and rhythm without murmurs, gallops, or rubs. RESPIRATORY: Clear to auscultation. Breath sounds equal bilaterally. No wheezes, rales, or rhonchi. GASTROINTESTINAL: Abdomen soft, suprapubic tenderness, nondistended. EXTREMITIES: No edema or joint tenderness. BACK: Nontender without deformity or crepitance. No flank tenderness. NEURO: AOx3. SKIN: No rash or erythema of visible areas Initial Vital Signs Initial Vital Signs: Vital Signs Temperature 97.9 F 04/05/22 04:35 Pulse Rate 80 04/05/22 04:35 Respiratory Rate 18 04/05/22 04:35 Blood Pressure 136/62 04/05/22 04:35 Pulse Oximetry 99 04/05/22 04:35 Oxygen Delivery Method 04/05/22 04:35 Course Course Course Narrative: Bladder scan notes greater than 660s cc postvoid residual. Larson catheter placed by nursing and patient has near immediate and complete resolution of symptoms Orders Ordered: Discontinued Medications Lidocaine HCl (Lidocaine 4% ([id number]) 160 Mg/4 Ml Kit) 160 mg TOP NOW ONE Stop: 04/05/22 04:41 Last Admin: 04/05/22 05:25 Dose: Not Given Documented By: RANDAL Tamsulosin HCl (Tamsulosin 0.4 Mg Capsule) 0.4 mg PO NOW ONE Stop: 04/05/22 05:03 Last Admin: 04/05/22 05:11 Dose: 0.4 mg Documented By: RANDAL Vital Signs Vital signs: Vital Signs - 8 hr 04/05/22 04:35 Temperature 97.9 F Pulse Rate 80 Respiratory Rate 18 Blood Pressure 136/62 Pulse Oximetry 99 Oxygen Delivery Method Room Air Medical Decision Making Lab Data Labs: Urine Dip Bedside Urine Glucose Negative Bedside Urine Bilirubin - Negative Bedside Urine Ketone - Negative Urine Specific [place] 1.010 Bedside Urine Occult Blood - Negative Bedside Urine pH 6.0 Bedside Urine Protein - Negative Bedside Urine Urobilinogen - Negative Bedside Urine Nitrite - Negative Bedside Urine Leukocytes - Negative Esterase Point of care testing: Urine Dip Bedside Urine Glucose Negative Bedside Urine Bilirubin - Negative Bedside Urine Ketone - Negative Urine Specific [place] 1.010 Bedside Urine Occult Blood - Negative Bedside Urine pH 6.0 Bedside Urine Protein - Negative Bedside Urine Urobilinogen - Negative Bedside Urine Nitrite - Negative Bedside Urine Leukocytes - Negative Esterase Imaging Data Abdominal x-ray: Radiologist's Impression: Close Chest/Abdomen X-ray (Signed) Devin Armstrong - 04/05/22 KUB X-Ray (Signed) Thierno Bowser - 02/11/22 Scrotum Ultrasound (Signed) Anamaria Gunderson - 01/14/22 Abdomen X-Ray (Signed) Celeste Rider - 12/26/21 KUB X-Ray (Signed) Lola Carranza - 12/23/21 KUB X-Ray (Signed) Michael Disla - 10/03/21 Abdomen X-Ray (Signed) Mynor Acrhuleta - 10/03/21 KUB X-Ray (Signed) TereLola - 09/24/21 Abdomen/Pelvis CT (Addendum) Sharad De La O - 09/22/21 Abdominal Arterial Study US (Signed) Theirno Bowser - 06/10/18 Renal Ultrasound (Signed) Hi Moreno - 02/15/18 Launch?Image [address] [address] XRay Report Signed Patient: Jatin Linn MR#: [id number] : 1950 Acct:[id number] Age/Sex: 71 / M Date of Service: 04/05/22 Loc: ED Accession Number: [id number] ?? Procedure: XR acute abdomen series Ordering Provider: Graham Olivares D.O. PROCEDURE:? XR ACUTE ABDOMEN SERIES ? INDICATIONS:? decreased bowel movements ? TECHNIQUE:? One view chest and two views of the abdomen were acquired.? ? COMPARISON:? [facility], CT, CT ABDOMEN PELVIS WO/W CON, 09/22/2021, 13:42.? [facility], CR, XR KUB, 02/11/2022, 12:00.? [facility], CR, ABDOMEN ACUTE SERIES, 12/09/2016, 8:45. ? FINDINGS:? ? Surgical changes and devices:? Post CABG changes are seen.? ? Chest:? Lungs are clear.? Heart size is normal.? No pleural effusions.? No pneumoperitoneum.? ? Abdomen:? Bowel gas pattern is normal.? A [id number] amount of stool is seen within the colon. ? The previously seen large left-sided stone is no longer seen.? There remains a 1 cm stone at the superior pole of the left kidney.? Visualized solid organ contours appear normal. ? There is gas seen within the region of the urinary bladder and an apparent Larson catheter.? ? Bones:? No suspicious bony lesions.? Age-appropriate bony degenerative changes are seen. ? ? IMPRESSION:? There is a mild to moderate amount of stool seen within the colon. Please correlate with an underlying history of constipation.? ? 1 cm nonobstructing left-sided kidney stone ? Postoperative and degenerative changes are seen.? ? Gas seen within the region of the urinary bladder and there is an apparent Larson catheter.? Please correlate with known history and function of the Larson catheter to verify proper positioning.? If clinically appropriate, a follow-up CT could be considered for further evaluation. ? ? Note: No significant discrepancy from the preliminary report.? ? Dictated by: Devin Armstrong M.D. on 04/05/2022 at 7:08 ? ? Approved by: Devin Armstrong M.D. on 04/05/2022 at 7:12 ? MDM Narrative Medical decision making narrative: Patient complains of inability to urinate with some vague abdominal discomfort. Symptoms completely resolved after Larson catheter is placed. Patient was found to have urinary retention on bladder scan. Larson draining easily and appropriately and patient asymptomatic without ongoing abdominal pain in the a ftermath. The x-ray notes some gas in the bladder though this is likely a consequence of the Larson catheter placement, furthermore the discussion of possibly inappropriately placed catheter seems unlikely given its ease in draining urine and patient's rapid and complete improvement symptoms. Patient is given return precautions and questions have been answered to his apparent satisfaction Discharge Plan Departure Patient Disposition: Home Clinical Impression: Urinary retention Instructions: DI for Urinary Retention in Men Activity Restrictions/Additional Instructions: *You have been diagnosed with [decreased bowel movements without evidence of bowel obstruction as well as urinary retention] *What to do: *Please continue to take your regular medications as directed. [ x] New medication prescriptions sent to your pharmacy: [[facility] ] * as we discussed, I have included the contact information for Dr. Dunn with the urology office. Please call his office Wednesday morning and let them know that you were seen in the emergency department and [facility] *You have been diagnosed with [ abdominal pain due to constipation ] *What to do: *Take over the counter medications as directed: 1. Metamucil - is a bulk forming laxative and adds fiber 2. Colace - softens your stool 3. Dulcolax suppository - stimulates your bowels *Follow up with your primary care provider in 2-3 days, call for appointme nt *Return to ER if you should have any new, worsening or concerning symptoms *Drink plenty of water and eat foods high in fiber *Stay as active as you can as this helps move your bowels as well Prescriptions: New tamsulosin [Flomax] 0.4 mg capsule 0.4 mg PO DAILY Qty: 30 0RF No Action aspirin 81 mg tablet,delayed release (DR/EC) 81 mg PO DAILY metoprolol succinate 50 mg tablet extended release 24 hr 50 mg PO QDAY Qty: 90 3RF metformin 500 mg tablet 500 mg PO BID Qty: 180 1RF ciprofloxacin HCl 250 mg tablet 250 mg PO BID Qty: 6 0RF Rx Instructions: Take one tablet twice daily one day prior to procedure. Take one tablet twice daily the day of procedure. Take one tablet twice daily the day after procedure. lisinopril 20 mg tablet 20 mg PO QAM Rx Instructions: 20mg in the morning and 10mg at night valsartan 160 mg Capsule 160 mg PO QPM atorvastatin 40 mg Tablet 40 mg PO QPM nitroglycerin [Nitrostat] 0.4 mg tablet, sublingual 0.4 mg Sublingual PRN PRN (Reason: Chest Pain) Label Comments: never used it yet Referrals: oRs Dunn MD [Physician] - Deon Huerta MD [Primary Care Provider] - Visit Report Forms: Patient Portal/API
--- NOTE | 2022-04-05 04:40 | PC.NURSE ---
Bladder scan 660mL.
[2022-04-05] MEDS: TAMSULOSIN 0.4 MG CAPSULE PO (05:11)
--- NOTE | 2022-04-05 05:14 | DI.RAD.S_ITS ---
PROCEDURE: XR ACUTE ABDOMEN SERIES INDICATIONS: decreased bowel movements TECHNIQUE: One view chest and two views of the abdomen were acquired. COMPARISON: [facility], CT, CT ABDOMEN PELVIS WO/W CON, 09/22/2021, 13:42. [facility], CR, XR KUB, 02/11/2022, 12:00. [facility], CR, ABDOMEN ACUTE SERIES, 12/09/2016, 8:45. FINDINGS: Surgical changes and devices: Post CABG changes are seen. Chest: Lungs are clear. Heart size is normal. No pleural effusions. No pneumoperitoneum. Abdomen: Bowel gas pattern is normal. A [id number]-[id number] amount of stool is seen within the colon. The previously seen large left-sided stone is no longer seen. There remains a 1 cm stone at the superior pole of the left kidney. Visualized solid organ contours appear normal. There is gas seen within the region of the urinary bladder and an apparent Larson catheter. Bones: No suspicious bony lesions. Age-appropriate bony degenerative changes are seen. IMPRESSION: There is a mild to moderate amount of stool seen within the colon. Please correlate with an underlying history of constipation. 1 cm nonobstructing left-sided kidney stone Postoperative and degenerative changes are seen. Gas seen within the region of the urinary bladder and there is an apparent Larson catheter. Please correlate with known history and function of the Larson catheter to verify proper positioning. If clinically appropriate, a follow-up CT could be considered for further evaluation. Note: No significant discrepancy from the preliminary report. Dictated by: Devin Armstrong M.D. on 04/05/2022 at 7:08 Approved by: Deivn Armstrong M.D. on 04/05/2022 at 7:12
[2022-04-05 06:22] VITALS: BP 123/78; O2SAT 99
== END 2022-04-05 06:24 | disposition home or self-care (01) ==
PROVIDERS: Emergency Provider Emergency Medicine; PCP Family Medicine
DX: R33.9 Retention of urine, unspecified (principal); R10.84 Generalized abdominal pain
CPT/HCPCS: 74022; 81003; 99283; 99284

== ENCOUNTER 2022-04-09 17:22 | Emergency (ER) | payer MEDICARE, OTHER, SELFPAY ==
[2022-04-09 17:26] VITALS: BP 159/76; PULSE 76; RESP 15; TEMP 36.5; O2SAT 98; BMI 26.6
--- NOTE | 2022-04-09 19:14 | ED.MALEGU ---
HPI - Male Genitourinary General Chief complaint: Urogenital-Male Stated complaint: unable to urinate, thinks catheter is plugged Time Seen by Provider: 04/09/22 18:09 Source: patient Mode of arrival: Ambulatory History of Present Illness HPI Narrative: 71M nonsmoker with history of diabetes and hypertension as well as hyperlipidemia with recent visit for urinary retention and Hansen catheter placement presents with a chief complaint that his Hansen is not draining over the course of the day. It has been fine and well over the course of the week but he states he saw a small clot in it earlier today and then stopped working. He has minimal suprapubic tenderness building but is otherwise fine well of complaint. He is had no fever or chills. Denies chest pain or shortness of breath. Denies any trouble with bowel movements. He has an upcoming appointment with Urology Related Data Home Medications Medication Instructions Recorded Confirmed aspirin 81 mg tablet,delayed 81 mg PO DAILY 04/11/19 03/13/22 release lisinopril 20 mg tablet 20 mg PO QAM 08/06/20 12/25/21 atorvastatin 40 mg tablet 40 mg PO QPM 03/13/22 03/13/22 nitroglycerin 0.4 mg sublingual 0.4 mg sublingual PRN PRN Chest 03/13/22 03/13/22 tablet (Nitrostat) Pain valsartan 160 mg capsule 160 mg PO QPM 03/13/22 03/13/22 Previous Rx's Medication Instructions Recorded metoprolol succinate 50 mg 50 mg PO QDAY #90 tabs 04/01/21 tablet,extended release 24 hr metformin 500 mg tablet 500 mg PO BID #180 tabs 08/13/21 tamsulosin 0.4 mg capsule (Flomax) 0.4 mg PO DAILY #30 caps 04/05/22 ciprofloxacin HCl 250 mg tablet 250 mg PO BID #6 tabs 04/09/22 Allergies Allergy/AdvReac Type Severity Reaction Status Date / Time No Known Drug Allergies Allergy Verified 04/09/22 17:26 Review of Systems Review of Systems Narrative: GENERAL: Denies chills, fatigue, malaise, fever, sweats. HEENT: Denies sinus pain, ear pain, sore throat, difficulty swallowing, dizziness. RESPIRATORY: Denies dyspnea, cough, wheezing, hemoptysis, sputum. CARDIOVASCULAR: Denies chest pain, palpitations, orthopnea, edema, GASTROINTESTINAL: Denies nausea, vomiting, abdominal pain, diarrhea, constipation, melena. : See HPI MUSCULOSKELETAL: denies weakness, joint pain, or bony pain SKIN: Denies rash, skin lesions, or other NEUROLOGIC: Denies weakness, headache, numbness, change in speech, confusion, seizures, incoordination. PSYCHIATRIC: No concerning psychosocial issues. 12 point review of systems is negative except for those stated above Patient History Medical History CAD (coronary artery disease) (2008) Chicken pox (~1954) Colon polyps (2011) Diabetes mellitus (2016) Foot pain (2013) Gout (2011) Hearing loss (1999) History of angina (2008) Hyperlipidemia (2009) Hypertension (10/1993) Left nephrolithiasis Measles (~1954) Mumps (1964) Retained ureteral stent Sleep apnea (2010) Subarachnoid hemorrhage (1992) Testicular atrophy Surgical History Anesthesia History of tonsillectomy Hx of cystoscopy (10/03/21) Status post coronary artery bypass graft (10/2009) Family History Father Stroke Diabetes mellitus Grandmother Cancer Sister Heart disease Grandfather No problems noted. Social History marital status: household members: spouse Smoking Status: Former smoker alcohol intake: current Smoking Status: Former smoker alcohol intake frequency: holidays/special occasions only Substance Use Type: does not use Exam Narrative Exam Narrative: GEN: AOx3 and in mild distress EYES: Pupils are equal, round, and reactive to light and accommodation. Extraoccular muscles are intact bilaterally. There is no subconjunctival hemorrhage or exudate. CHEST: Lungs are clear to auscultation bilaterally and free of wheezes, rales, or rhonchi. Heart rate is regular rhythm, there are no murmurs, clicks, rubs, or gallops. There is no chest wall tenderness. ABD: Abdomen is soft and nontender. There is no guarding or rebound. Bowel sounds are normal in all 4 quadrants. There is no mass or organomegaly. EXT: Full painless ROM of all extremities with no loss of sensation or strength. SKIN: Warm, pink, and dry. No erythema or rash Initial Vital Signs Initial Vital Signs: Vital Signs Temperature 97.7 F 04/09/22 17:26 Pulse Rate 76 04/09/22 17:26 Respiratory Rate 15 04/09/22 17:26 Blood Pressure 159/76 H 04/09/22 17:26 Pulse Oximetry 98 04/09/22 17:26 Oxygen Delivery Method 04/09/22 17:26 Course Course Course Narrative: Fully flushed by nursing, small clot removed, flowing freely afterwards, patient symptoms improved Vital Signs Vital signs: Vital Signs - 8 hr 04/09/22 17:26 Temperature 97.7 F Pulse Rate 76 Respiratory Rate 15 Blood Pressure 159/76 H Pulse Oximetry 98 Oxygen Delivery Method Room Air Discharge Plan Departure Patient Disposition: Home Clinical Impression: Problem with Hansen catheter Instructions: How to Care for Your Hansen Catheter -- Male Activity Restrictions/Additional Instructions: *You have been diagnosed with [hansen cather problem, easiliy resolved ] *What to do: *Please continue to take your regular medications as directed. [ ] New medication prescriptions sent to your pharmacy: [ ] [ ] New medication written as a paper prescription [ ] No new medications given *Please follow up with your urology group as planned *Return to Emergency Department if you should have any new, worsening or concerning symptoms, such as [fever greater than 101 F, shaking chills, worsening pain, persistent vomiting or other bothersome symptoms] Prescriptions: No Action aspirin 81 mg tablet,delayed release (DR/EC) 81 mg PO DAILY metoprolol succinate 50 mg tablet extended release 24 hr 50 mg PO QDAY Qty: 90 3RF metformin 500 mg tablet 500 mg PO BID Qty: 180 1RF ciprofloxacin HCl 250 mg tablet 250 mg PO BID Qty: 6 0RF Rx Instructions: Take one tablet twice daily one day prior to procedure. Take one tablet twice daily the day of procedure. Take one tablet twice daily the day after procedure. lisinopril 20 mg tablet 20 mg PO QAM Rx Instructions: 20mg in the morning and 10mg at night valsartan 160 mg Capsule 160 mg PO QPM atorvastatin 40 mg Tablet 40 mg PO QPM nitroglycerin [Nitrostat] 0.4 mg tablet, sublingual 0.4 mg Sublingual PRN PRN (Reason: Chest Pain) Label Comments: never used it yet tamsulosin [Flomax] 0.4 mg capsule 0.4 mg PO DAILY Qty: 30 0RF Referrals: Deon Huerta MD [Primary Care Provider] - Visit Report Forms: Patient Portal/API
== END 2022-04-09 19:09 | disposition home or self-care (01) ==
PROVIDERS: Emergency Provider Emergency Medicine; PCP Family Medicine
DX: T83.9XXA Unspecified complication of genitourinary prosthetic device, implant and graft, initial encounter (principal)
CPT/HCPCS: 51798; 99282

== ENCOUNTER → 2022-04-15 11:00 | Outpatient (CLI) | payer MEDICARE, OTHER, SELFPAY ==
--- NOTE | 2022-04-15 | DI.US.S_ITS ---
PROCEDURE: US RENAL COMPLETE INDICATIONS: Calculus of kidney TECHNIQUE: Real-time scanning was performed of the kidneys and bladder, with image documentation. COMPARISON: [facility], CR, XR KUB, 02/11/2022, 12:00. [facility], CR, XR KUB, 04/15/2022, 11:35. [facility], CR, XR ACUTE ABDOMEN SERIES, 04/05/2022, 5:17. [facility], CT, CT ABDOMEN PELVIS WO/W CON, 09/22/2021, 13:42. [facility], US, US RENAL COMPLETE, 02/15/2018, 9:27. FINDINGS: Kidneys: Kidneys are normal in size. Right kidney measures 12 cm long; left kidney measures 11.9 cm long. Right renal cortical thickness is 1.2 cm; left renal cortical thickness is 1.4 cm. Renal cortical echotexture is normal. No suspicious solid mass lesions. A 1.1 cm calcification is seen at the superior pole left kidney corresponding to the known calculus in this location. Previously seen calcification in the left renal pelvis is no longer visualized. No hydronephrosis is seen bilaterally. Bladder: Pre-void bladder volume is 17 mL. Patient unable to void at the time of the exam. Bladder is relatively decompressed, which limits evaluation. Miscellaneous: No free pelvic fluid. IMPRESSION: Stable 11 mm nonobstructing calculus at the superior pole of the left kidney. No hydronephrosis. Dictated by: Mynor Archuleta M.D. on 04/15/2022 at 13:14 Approved by: Mynor Archuleta M.D. on 04/15/2022 at 13:22
== END ==
PROVIDERS: PCP Family Medicine; Referring Provider Urology; Visit Provider Urology
DX: N20.0 Calculus of kidney (principal)
CPT/HCPCS: 76770

== ENCOUNTER → 2022-04-15 11:04 | Outpatient (CLI) | payer MEDICARE, OTHER, SELFPAY ==
--- NOTE | 2022-04-15 11:05 | DI.RAD.S_ITS ---
PROCEDURE: XR KUB INDICATIONS: Kidney stone TECHNIQUE: One view of the abdomen acquired. COMPARISON: [facility], CR, XR KUB, 02/11/2022, 12:00. [facility], CR, XR ACUTE ABDOMEN SERIES, 04/05/2022, 5:17. FINDINGS: Surgical changes and devices: None. Bowel: Bowel gas pattern is normal. Soft tissues: A 1.1 cm calcification is seen projecting over the superior pole of left kidney that does not appear significantly changed. The previously seen larger calculus in the region of the left urinary pelvis is no longer visualized. Visualized solid organ contours appear normal in size. Bones: No suspicious bony lesions. Degenerative changes are seen in the spine and hips. IMPRESSION: Stable 1.1 cm left ureteral calculus. Dictated by: Mynor Archuleta M.D. on 04/15/2022 at 13:22 Approved by: Mynor Archuleta M.D. on 04/15/2022 at 13:24
== END ==
PROVIDERS: PCP Family Medicine; Referring Provider Specialist; Visit Provider Specialist
DX: N20.1 Calculus of ureter (principal); R31.9 Hematuria, unspecified
CPT/HCPCS: 74018; 76770

== ENCOUNTER → 2022-05-05 12:05 | Outpatient (CLI) | payer MEDICARE, OTHER, SELFPAY ==
[2022-05-05 14:52] LABS: Add Manual Diff / Slide Review NO; Basophils Absolute Auto 100 /uL (0-100); Basophils Percent Auto 0.8 % (0-2); Eosinophils Absolute Auto 100 /uL (0-450); Eosinophils Percent Auto 1.6 % (2-4); Hematocrit 35.1 % (41-53); Hemoglobin 11.9 g/dL (13.5-17.5); Lymphocytes Absolute Auto 2300 /uL (1100-4500); Lymphocytes Percent Auto 32.1 % (25-40); Mean Corpuscular Hemoglobin 31.1 PG (26-34); Mean Corpuscular Volume 91.3 fL (80-100); Monocytes Absolute Auto 800 /uL (0-900); Monocytes Percent Auto 10.8 % (3-14); Neutrophils Absolute Auto 4000 /uL (1500-7000); Neutrophils Percent Auto 54.7 % (50-75); Platelet Count 262 X10^3/uL (150-400); Red Blood Cell Count 3.84 X10^6/uL (4.5-5.9); Red Cell Distribution Width 14.1 % (11.6-14.8); White Blood Cell Count 7.3 X10^3/uL (4.5-11.0)
[2022-05-05 15:40] LABS: BUN Creatinine Ratio 13.6 (6-22); Blood Urea Nitrogen 15 mg/dL (9-20); Calcium 9.3 mg/dL (8.4-10.2); Carbon Dioxide 25 mmol/L (22-32); Chloride 96 mmol/L (98-107); Estimated Glomerular Filt Rate > 60 mL/min (>60); Glucose 103 mg/dL (80-110); HEMOLYSIS < 15 (0-50); Potassium 4.8 mmol/L (3.4-5.1); Sodium 132 mmol/L (137-145)
== END ==
PROVIDERS: PCP Family Medicine; Referring Provider Nurse Practitioner Family; Visit Provider Nurse Practitioner Family
DX: I10 Essential (primary) hypertension (principal); N28.9 Disorder of kidney and ureter, unspecified
CPT/HCPCS: 36415; 80048; 85025

== ENCOUNTER → 2022-06-25 12:01 | Outpatient (CLI) | payer MEDICARE, OTHER, SELFPAY ==
[2022-06-25 14:41] LABS: Prostate Specific Antigen 1.38 ng/mL (0.10-4.00)
== END ==
PROVIDERS: PCP Family Medicine; Referring Provider Specialist; Visit Provider Specialist
DX: N40.1 Benign prostatic hyperplasia with lower urinary tract symptoms (principal); N13.8 Other obstructive and reflux uropathy
CPT/HCPCS: 36415; 84153

== ENCOUNTER → 2022-12-03 11:59 | Outpatient (CLI) | payer MEDICARE, OTHER, SELFPAY ==
[2022-12-03 13:44] LABS: Alanine Aminotransferase 23 IU/L (<50); Albumin 4.3 g/dL (3.5-5.0); Albumin Globulin Ratio 1.3 (1.0-2.8); Alkaline Phosphatase 119 U/L (38-126); Aspartate Aminotransferase 28 IU/L (17-59); BUN Creatinine Ratio 19.3 (6-22); Bilirubin Total 0.8 mg/dL (0.2-1.3); Blood Urea Nitrogen 23 mg/dL (9-20); Calcium 8.8 mg/dL (8.4-10.2); Carbon Dioxide 26 mmol/L (22-32); Chloride 98 mmol/L (98-107); Cholesterol 136 mg/dL (140-199); Estimated Glomerular Filt Rate > 60 mL/min (>60); Globulin 3.3 g/dL (1.7-4.1); Glucose 119 mg/dL (80-110); HDL Cholesterol 48 mg/dL (40-60); HEMOLYSIS < 15 (0-50); LDL Cholesterol Calculated 69 mg/dL (<100); Sodium 133 mmol/L (137-145); Total Protein 7.6 g/dL (6.3-8.2); Triglycerides 93 mg/dL (35-150)
[2022-12-04 14:39] LABS: Osmolality, Serum 282 mOsmol/kg (280-301)
== END ==
PROVIDERS: PCP Family Medicine; Referring Provider Internal Medicine Cardiovascular Disease; Visit Provider Internal Medicine Cardiovascular Disease
DX: I10 Essential (primary) hypertension (principal); I25.810 Atherosclerosis of coronary artery bypass graft(s) without angina pectoris
CPT/HCPCS: 36415; 80053; 80061; 83930

== ENCOUNTER → 2023-05-11 12:59 | Outpatient (CLI) | payer MEDICARE, OTHER, SELFPAY ==
--- NOTE | 2023-05-11 13:01 | DI.RAD.S_ITS ---
PROCEDURE: XR KUB INDICATIONS: Evaluate renal anatomy TECHNIQUE: One view of the abdomen acquired. COMPARISON: [facility], CR, XR KUB, 04/15/2022, 11:35. FINDINGS: Surgical changes and devices: None. Bowel: Bowel gas pattern is normal. Soft tissues: 1.1 centimeter calcification projecting of the superior pole left kidney is stable. Visualized solid organ contours appear normal in size. Bones: No suspicious bony lesions. IMPRESSION: Stable 1.1 centimeter left renal stone. Dictated by: Celeste Rider MD, PhD on 05/11/2023 at 15:27 Approved by: Celeste Rider MD, PhD on 05/11/2023 at 15:28
[2023-05-11 15:58] LABS: Prostate Specific Antigen 0.606 ng/mL (0.10-4.00)
== END ==
PROVIDERS: PCP Family Medicine; Referring Provider Specialist; Visit Provider Specialist
DX: N40.1 Benign prostatic hyperplasia with lower urinary tract symptoms (principal); N13.8 Other obstructive and reflux uropathy; R33.9 Retention of urine, unspecified; R31.0 Gross hematuria; N20.0 Calculus of kidney; Z96.0 Presence of urogenital implants
CPT/HCPCS: 36415; 74018; 84153

== ENCOUNTER → 2024-03-22 10:12 | Outpatient (CLI) | payer MEDICARE, OTHER, SELFPAY ==
--- NOTE | 2024-03-22 10:35 | DI.RAD.S_ITS ---
PROCEDURE: XR KUB INDICATIONS: BPH w/LUTS TECHNIQUE: One view of the abdomen acquired. COMPARISON: None. FINDINGS: Surgical changes and devices: None. Bowel: Large amount of fecal matter throughout the colon extending to sigmoid colon and rectum is seen. No gross pneumoperitoneum. Soft tissues: There is a 1.1 cm calcifications seen projecting in the region of left renal fossa. Visualized solid organ contours appear normal in size. Bones: No suspicious bony lesions. IMPRESSION: 1. Suggestion of 1.1 cm possible left renal stone. 2. Moderate to severe constipation and fecal impaction. Dictated by: Thierno Bowser M.D. on 03/22/2024 at 14:26 Approved by: Thierno Bowser M.D. on 03/22/2024 at 14:27
[2024-03-22 19:23] LABS: Prostate Specific Antigen 0.551 ng/mL (0.10-4.00)
== END ==
LOC: LAB 10:21 → RAD 10:34
PROVIDERS: PCP Family Medicine; Referring Provider Urology; Visit Provider Urology
DX: N40.1 Benign prostatic hyperplasia with lower urinary tract symptoms (principal); N13.8 Other obstructive and reflux uropathy; K56.41 Fecal impaction
CPT/HCPCS: 36415; 74018; 84153

== ENCOUNTER → 2024-04-12 10:42 | Outpatient (CLI) | payer MEDICARE, OTHER, SELFPAY ==
--- NOTE | 2024-04-12 | DI.US.S_ITS ---
PROCEDURE: US CAROTID DOPPLER BI INDICATIONS: Occlusion and stenosis of bilateral carotid arteri TECHNIQUE: Color and pulse Doppler interrogation was performed of both carotid systems, with image documentation and velocity measurements. COMPARISON: [facility], , US CAROTID BILATERAL, 09/04/2020, 9:59. [facility], , CAROTID ARTERY DOPPLER BILAT, 06/08/2016, 10:00. FINDINGS: Stenosis calculations are based on SRU (Society of Radiologists in Ultrasound) criteria. The flow velocities and the arterial waveforms are normal within both carotid arterial systems. Atherosclerotic plaque is seen on both sides. The estimated degree of internal carotid artery stenosis is less than 50%. Antegrade flow is confirmed within both vertebral arteries. IMPRESSION: No hemodynamically significant stenosis is seen. Atherosclerotic plaque is noted bilaterally. No significant change from the prior. Dictated by: Devin Armstrong M.D. on 04/12/2024 at 12:37 Approved by: Devin Armstrong M.D. on 04/12/2024 at 12:38
--- NOTE | 2024-04-12 | DI.NM.S_ITS ---
PROCEDURE: [facility] CHICO PERF SPECT R&S PHARM Rest and pharmacological stress myocardial perfusion SPECT with gated imaging and ejection fraction RADIOPHARMACEUTICAL: 11.5 mCi Tc-99m tetrafosmin IV at rest and 25.9 mCi Tc-99m tetrafosmin IV at peak effect of pharmacological stress. [id number] was performed. INDICATIONS: Occlusion and stenosis of bilateral carotid arteri TECHNIQUE: Radiopharmaceutical was injected at peak stress test, and also at rest. SPECT images were obtained. SPECT myocardial perfusion images were displayed in short axis, horizontal long axis, and vertical long axis views. Gated images were reviewed using [employer] software. COMPARISON: None. CARDIAC STRESS: A pharmacologic stress test was performed under the supervision of an attending staff, using an infusion of lexiscan 0.4mg IV X1. Hemodynamic data: There is normal blood pressure and heart rate response to pharmacologic stress. Symptoms: The patient denied anginal chest pain. Aminophylline: none EKG: Resting ECG showed sinus rhythm with non-specific ST changes that worsened to mild horizontal ST depressions in the anterolateral leads with lexiscan. These ST changes are non-diagnostic in the setting of reassuring perfusion images. No ectopy. FINDINGS: Raw data: There is good myocardial uptake of radiotracer. No significant motion artifacts. Kuxz-qk-jncew ratio is 0.31 (normal is less than 0.38 for tetrafosmin tracer). Left ventricle function: Gated images demonstrate normal left ventricular wall thickening. No segmental wall motion abnormalities. No transient ischemic dilation; TID is 0.91 (normal less than 1.3). Left ventricle resting end diastolic volume is 114 mL. Left ventricle stress ejection fraction is 72%; normal range is above 45%. Myocardial perfusion: There is normal distribution of activity in the right and left ventricular myocardium. No fixed or reversible perfusion defects. IMPRESSION: Low risk, normal pharm nuclear stress test with normal LV size, wall motion, and systolic function (EF post stress 72%). Dictated by: Rodrigue Rondon MD on 04/13/2024 at 12:21 Approved by: Rodrigue Rondon MD on 04/13/2024 at 12:24
== END ==
LOC: NUCM 10:44
PROVIDERS: PCP Family Medicine; Referring Provider Internal Medicine Cardiovascular Disease; Visit Provider Internal Medicine Cardiovascular Disease
DX: I65.23 Occlusion and stenosis of bilateral carotid arteries (principal); I25.810 Atherosclerosis of coronary artery bypass graft(s) without angina pectoris
CPT/HCPCS: 78452; 93017; 93880; A9502; J2785

== ENCOUNTER → 2024-09-04 11:19 | Outpatient (CLI) | payer MEDICARE, OTHER, SELFPAY ==
[2024-09-04 12:15] LABS: Add Manual Diff / Slide Review NO; Basophils Absolute Auto 100 /uL (0-100); Basophils Percent Auto 1.2 % (0-2); Eosinophils Absolute Auto 400 /uL (0-450); Eosinophils Percent Auto 4.6 % (2-4); Hematocrit 37.6 % (41-53); Hemoglobin 12.9 g/dL (13.5-17.5); Lymphocytes Absolute Auto 2500 /uL (1100-4500); Lymphocytes Percent Auto 27.8 % (25-40); Mean Corpuscular HGB Conc 34.5 % (30-36); Mean Corpuscular Hemoglobin 32.5 PG (26-34); Mean Corpuscular Volume 94.4 fL (80-100); Monocytes Absolute Auto 800 /uL (0-900); Monocytes Percent Auto 8.3 % (3-14); Neutrophils Absolute Auto 5200 /uL (1500-7000); Neutrophils Percent Auto 58.1 % (50-75); Platelet Count 231 X10^3/uL (150-400); Red Blood Cell Count 3.98 X10^6/uL (4.5-5.9); Red Cell Distribution Width 13.5 % (11.6-14.8)
[2024-09-04 12:28] LABS: Hemoglobin A1C% w Est Avg Glu 6.2 % (4.0-6.0)
[2024-09-04 12:33] LABS: Alanine Aminotransferase 10 IU/L (<50); Albumin 4.6 g/dL (3.5-5.0); Albumin Globulin Ratio 1.4 (1.0-2.8); Alkaline Phosphatase 116 U/L (38-126); Aspartate Aminotransferase 26 IU/L (17-59); BUN Creatinine Ratio 15.4 (6-22); Bilirubin Total 1.1 mg/dL (0.2-1.3); Blood Urea Nitrogen 18 mg/dL (9-20); Calcium 9.5 mg/dL (8.4-10.2); Carbon Dioxide 22 mmol/L (22-32); Chloride 103 mmol/L (98-107); Cholesterol 128 mg/dL (140-199); Estimated Glomerular Filt Rate > 60 mL/min (>60); Globulin 3.4 g/dL (1.7-4.1); Glucose 148 mg/dL (80-110); HDL Cholesterol 68 mg/dL (40-60); HEMOLYSIS < 15 (0-50); LDL Cholesterol Calculated 44 mg/dL (<100); Potassium 4.6 mmol/L (3.4-5.1); Sodium 134 mmol/L (137-145); Triglycerides 78 mg/dL (35-150)
[2024-09-04 13:04] LABS: Thyroid Stimulating Hormone 4.21 uIU/mL (0.47-4.68)
== END ==
LOC: LAB 11:22
PROVIDERS: Nurse Practitioner Family; PCP Family Medicine; Referring Provider Family Medicine; Visit Provider Family Medicine
DX: E78.2 Mixed hyperlipidemia (principal); E11.9 Type 2 diabetes mellitus without complications; I10 Essential (primary) hypertension; R79.9 Abnormal finding of blood chemistry, unspecified
CPT/HCPCS: 36415; 80053; 80061; 83036; 84443; 85025

== ENCOUNTER 2024-10-09 08:11 | Day surgery (SDC) | payer MEDICARE, OTHER, SELFPAY ==
[2024-10-09] MEDS: LACTATED RINGERS 1,000 ML 42 ML IV (08:43)
[2024-10-09 08:51] VITALS: BP 187/73; PULSE 63; RESP 18; TEMP 36.2; O2SAT 100
--- NOTE | 2024-10-09 09:03 | PM.HP.IH.1 ---
History of Present Illness History of Present Illness Date Patient Seen: 10/09/24 Chief complaint: Colonoscopy Narrative: History of colon polyps [facility] Medical History BPH w urinary obs/LUTS Retained ureteral stent Testicular atrophy Left nephrolithiasis Subarachnoid hemorrhage (1992) History of angina (2008) Foot pain (2013) Diabetes mellitus (2016) CAD (coronary artery disease) (2008) Chicken pox (~1954) Gout (2011) Measles (~195) Mumps (1964) Hypertension (10/1993) Hyperlipidemia (2009) Hearing loss (1999) Sleep apnea (2010) Colon polyps (2011) Surgical History Hx of cystoscopy (10/03/21) Anesthesia Status post coronary artery bypass graft (10/2009) History of tonsillectomy Family History Father Stroke Diabetes mellitus Grandmother Cancer Sister Heart disease Grandfather No problems noted. Social History marital status: household members: spouse Smoking Status: Former smoker alcohol intake: current Meds Home Medications and Allergies Home Medications Medication Instructions Recorded Confirmed Type aspirin 81 mg tablet,delayed 81 mg PO DAILY 04/11/19 10/09/24 History release metoprolol succinate 50 mg 50 mg PO QDAY #90 tabs 04/01/21 10/09/24 Rx tablet,extended release 24 hr metformin 500 mg tablet 500 mg PO BID #180 tabs 08/13/21 03/30/24 Rx atorvastatin 40 mg tablet 40 mg PO QPM 03/13/22 10/09/24 History nitroglycerin 0.4 mg sublingual 0.4 mg sublingual PRN PRN Chest 03/13/22 10/09/24 History tablet (Nitrostat) Pain valsartan 160 mg capsule 160 mg PO QPM 03/13/22 10/09/24 History tamsulosin 0.4 mg capsule (Flomax) 0.4 mg PO DAILY #30 caps 04/05/22 03/30/24 Rx carbidopa 25 mg-levodopa 100 mg 1 tab PO BID 03/30/24 10/09/24 History disintegrating tablet sodium,potassium,mag sulfates 17.5 See Rx Instructions PO .COMPLEX 09/05/24 Rx gram-3.13 gram-1.6 gram oral soln #354 mL (Suprep Bowel Prep Kit) amlodipine 2.5 mg tablet 2.5 mg PO DAILY 10/06/24 10/09/24 History Allergies Allergy/AdvReac Type Severity Reaction Status Date / Time No Known Drug Allergies Allergy Verified 10/09/24 08:49 Exam Narrative Exam Narrative: Oropharynx free of lesions Chest clear to auscultation percussion Cardiac exam reveals no S3 or murmur Assessment & Plan Assessment & Plan narrative: History of colon polyps need for follow-up colonoscopy. Risks, benefits, alternatives have been explained. Time-Based Coding :: [TOTAL MINUTES] spent with patient and on the chart (including review of chart, obtaining history, exam, reviewing outside data, placing orders, documenting exam and treatment plan, and counseling patient) on [DATE]. [employer]EE [employer] Document charge(s): No
--- NOTE | 2024-10-09 09:04 | PM.OP.COLON ---
Procedure & Clinicians Study performed: Colonoscopy Same procedure as scheduled: Yes Indications: History of colon polyps Surgeon: Camilla Headley Procedure Notes Procedure in detail: After informed consent was obtained the patient was placed in left lateral decubitus position. The video colonoscope was introduced the rectum slowly advanced cecum. Preparation was mixture of solid and liquid stool up the left colon. There was inability to suction residual prep so the procedure was aborted.. The scope was removed. The patient tolerated procedure well. Blood loss none Complications none Sedation mac Findings One. Poor prep with solid and liquid stool throughout the left colon Patient will need to be rescheduled with a double dose preparation.
[2024-10-09] MEDS: CARBIDOPA-LEVODOPA 25/100 TABLET 2 EACH PO (09:12)
[2024-10-09 09:51] VITALS: BP 104/45; PULSE 59; RESP 11; TEMP 36.4; O2SAT 97
[2024-10-09 09:55] VITALS: BP 111/47; PULSE 61; RESP 14; RESP 15; O2SAT 100
[2024-10-09 10:00] VITALS: BP 115/50; PULSE 58; RESP 19; O2SAT 98
[2024-10-09 10:19] VITALS: BP 135/65; PULSE 58; RESP 16; TEMP 36.6; O2SAT 97
== END 2024-10-09 10:35 | disposition home or self-care (01) ==
PROVIDERS: PCP Family Medicine; Referring Provider Internal Medicine Gastroenterology; Visit Provider Internal Medicine Gastroenterology
PROC: 0DJD8ZZ Inspection of Lower Intestinal Tract, Via Natural or Artificial Opening Endoscopic (ICD-10-PCS; CPT 45378; principal; 2024-10-09 09:30)
DX: Z12.11 Encounter for screening for malignant neoplasm of colon (principal); Z86.0100 Personal history of colon polyps, unspecified; Z87.891 Personal history of nicotine dependence; Z53.09 Procedure and treatment not carried out because of other contraindication
CPT/HCPCS: G0105; J2704

== ENCOUNTER → 2025-01-11 11:55 | Outpatient (CLI) | payer MEDICARE, OTHER, SELFPAY ==
--- NOTE | 2025-01-11 11:56 | DI.ECHO.S_ITS ---
[place] [facility] : : [address] : : [place] Last : : [id number] : : Phone: [phone] Echocardiogram Report + + :Name: KAILEE CRENSHAW Study Date: 01/11/2025 Height: 68 in : :Hospital ReadingLocation: Weight: 180 lb : : Gender: Male BSA: 2.0 m2 : :: 1950 Age: 74 yrs BP: 182/85 mmHg: :Reason For Study: CORONARY ARTERY DISEASE : :Ordering Physician: JORY, : :NEEL Alcala PA-C Performed By: Carina Voss : :Referring: NEEL CORLEY PA-C : + + Interpretation Summary The left ventricle is normal in size and wall thickness. The left ventricular ejection fraction is normal. The ejection fraction is estimated to be 60-65%. There has been no significant change in LVEF since the previous exam. The right ventricle is normal in size and function. There is mild mitral regurgitation. There is mild tricuspid regurgitation. The right ventricular systolic pressure is estimated to be at least 41 mmHg based on an estimated right atrial pressure of 3 mm Hg. Previously 25 to 30 mmHg. BP: 182/85 mmHg Procedure: A two-dimensional transthoracic echocardiogram with color flow and Doppler was performed. The study quality was technically adequate. Comparison is made with the echocardiogram of 03/08/2012. The patient was in sinus bradycardia with heart rates between 58-65 bpm during the exam. Left Ventricle: The left ventricle is normal in size and wall thickness. There is no thrombus. The ejection fraction is estimated to be 60-65%. The left ventricular ejection fraction is normal. There has been no significant change since the previous exam. There are no focal wall motion abnormalities. MV E/A: 1.3 Med Peak E' Fabian: 7.1 cm/sec E/E' med: 13.7. Right Ventricle: The right ventricle is normal in size and function. Atria: The left atrium is mildly dilated. There has been no significant change since the previous study. Right atrial size is normal. In subcostal view, linear artifacts seen in the right atrium. There is no Doppler evidence for an interatrial shunt. Mitral Valve: The mitral valve leaflets appear mildly thickened. There is mild mitral annular calcification. There is mild mitral regurgitation. Aortic Valve: The aortic valve is trileaflet. The aortic valve opens well. There is no aortic valve stenosis. There is trace aortic regurgitation. Tricuspid Valve: The tricuspid valve leaflets are thin and pliable. There is mild tricuspid regurgitation. The right ventricular systolic pressure is estimated to be at least 41 mmHg based on an estimated right atrial pressure of 3 mm Hg. Pulmonic Valve: The pulmonic valve leaflets are thin and pliable; valve motion is normal. There is mild pulmonic regurgitation. Great Vessels: The aortic root is normal size. The dimensions of the ascending aorta are normal. The IVC is of normal diameter and collapses greater than 50% with a sniff. This suggests a low right atrial pressure of 3 mm Hg. Pericardium/ Pleura There is no pericardial effusion. There is no pleural effusion. MMode/2D Measurements & Calculations LVIDd: 4.9 cm LVOT diam: 2.1 cm LVIDs: 3.2 cm Ao root diam: 3.0 cm FS: 36.0 % asc Aorta Diam: 3.5 cm EPSS: 0.28 cm Ao Arch Diam (Prox Trans): 3.5 cm IVSd: 1.00 cm LVPWd: 0.75 cm LV horowitz. diameter/BSA (cm/m^2): 2.5 LV sys. diameter/BSA (cm/m^2): 1.6 LA A2 area: 22.8 cm2 RA long axis: 5.1 cm LA A4 area: 19.8 cm2 RA area: 14.8 cm2 LA length (vol): 5.5 cm RA vol: 36.4 ml LA vol: 69.3 ml RA : 18.6 ml/m2 LA vol index: 35.5 ml/m2 IVC diam: 1.7 cm RVD1 (basal): 4.0 cm RVD2 (mid): 3.4 cm TAPSE: 2.4 cm Doppler Measurements & Calculations Ao V2 max: 119.2 cm/sec LVOT Max Fabian: 108.8 cm/sec Ao V2 mean: 79.9 cm/sec LV V1 max P.7 mmHg Ao max P.6 mmHg LV V1 VTI: 24.7 cm Ao mean P.9 mmHg UMESH(I,D): 3.0 cm2 Ao V2 VTI: 28.6 cm UMESH(V,D): 3.2 cm2 sev ratio: 0.86 UMESH indexed to BSA (cm^2/m^2): 1.6 MV E max fabian: 97.4 cm/sec TR max fabian: 309.1 cm/sec MV A max fabian: 76.5 cm/sec TR max P.2 mmHg MV E/A: 1.3 PA V2 max: 121.4 cm/sec Med Peak E' Fabian: 7.1 cm/sec PA V2 mean: 84.4 cm/sec E/E' med: 13.7 PA mean P.2 mmHg Lat Peak E' Fabian: 6.8 cm/sec PA pr(Accel): 11.8 mmHg E/E' lat: 14.3 E/e' average: 14.0 MV dec time: 0.16 sec SV(LVOT): 86.9 ml Reading Physician:04:41 PM
== END ==
LOC: ECHO 11:56
PROVIDERS: PCP Family Medicine; Referring Provider Physician Assistant; Visit Provider Physician Assistant
DX: I08.1 Rheumatic disorders of both mitral and tricuspid valves (principal); I25.810 Atherosclerosis of coronary artery bypass graft(s) without angina pectoris; R60.0 Localized edema
CPT/HCPCS: 93306

== ENCOUNTER → 2025-03-21 14:37 | Outpatient (CLI) | payer MEDICARE, OTHER, SELFPAY ==
[2025-03-21 16:13] LABS: Appearance Urine UA CLEAR; Bilirubin Urine UA NEGATIVE (NEGATIVE); Color Urine UA YELLOW; Glucose Urine UA NEGATIVE (Negative); Ketones Urine UA TRACE (NEGATIVE); Leukocyte Esterase Urine UA NEGATIVE (NEGATIVE); Nitrite Urine UA NEGATIVE (Negative); Occult Blood Urine UA NEGATIVE (Negative); Protein Urine UA NEGATIVE (Negative); Specific Gravity Urine UA 1.015 (1.000-1.035); Urobilinogen Urine UA 1.0 E.U./dL (0.2); pH Urine UA 6.0 (4.5-8.0)
[2025-03-21 16:36] LABS: Hemoglobin A1C% w Est Avg Glu 6.5 % (4.0-6.0)
[2025-03-21 17:18] LABS: Blood Urea Nitrogen 25 mg/dL (9-20); Calcium 9.6 mg/dL (8.4-10.2); Carbon Dioxide 23 mmol/L (22-32); Chloride 100 mmol/L (98-107); Estimated Glomerular Filt Rate > 60 mL/min (>60); Glucose 91 mg/dL (70-99); HEMOLYSIS 19 (0-50); Potassium 5.3 mmol/L (3.4-5.1); Sodium 135 mmol/L (137-145)
== END ==
PROVIDERS: PCP Family Medicine; Referring Provider Family Medicine; Visit Provider Family Medicine
DX: E11.9 Type 2 diabetes mellitus without complications (principal); G20.B1 Parkinson's disease with dyskinesia, without mention of fluctuations; N18.2 Chronic kidney disease, stage 2 (mild); N32.81 Overactive bladder; I10 Essential (primary) hypertension
CPT/HCPCS: 36415; 80048; 81001; 83036